=== PATIENT | female | born 1940 | race Caucasian/White ===

== ENCOUNTER 2018-10-07 16:47 | Inpatient (IN) ==
[2018-10-07 17:27] LABS: BILIRUBIN URINE NEGATIVE (NEGATIVE); BLOOD URINE 4+ (NEGATIVE); CLARITY VERY CLOUDY (CLEAR); COLOR YELLOW; GLUCOSE URINE NEGATIVE (NEGATIVE); KETONE URINE NEGATIVE (NEGATIVE); LEUKOCYTES URINE 2+ (NEGATIVE); NITRITE URINE NEGATIVE (NEGATIVE); PROTEIN URINE TRACE mg/dL (NEGATIVE); UR AMPHETAMINES QUAL NONE DETECTED (NONE DETECT); UR BARBITUATES QUAL NONE DETECTED (NONE DETECT); UR BENZODIAZEPIN QUAL NONE DETECTED (NONE DETECT); UR CANNABINOIDS QUAL NONE DETECTED (NONE DETECT); UR COCAINE QUAL NONE DETECTED (NONE DETECT); UR METHADONE QUAL NONE DETECTED (NONE DETECT); UR METHAMPHETAMINE QUAL NONE DETECTED (NONE DETECT); UR OPIATES QUAL NONE DETECTED (NONE DETECT); UR OXYCODONE QUAL NONE DETECTED (NONE DETECT); UR PCP QUAL NONE DETECTED (NONE DETECT); UR PROPOXYPHENE QUAL NONE DETECTED (NONE DETECT); UR TCA QUAL NONE DETECTED (NONE DETECT); UROBILINOGEN URINE NORMAL
[2018-10-07 17:28] LABS: URINE SOURCE CLEAN CATCH
[2018-10-07 17:32] LABS: URINE BACTERIA 2+ /HFP; URINE CAST NONE SEEN /LPF; URINE CRYSTAL NONE SEEN /HPF; URINE EPITHELIAL CELLS >10 /HPF (<10); URINE SMALL ROUND CELLS TRANSITIONAL PRESENT; URINE WBC TNTC /HPF (<10); URINE YEAST NONE SEEN /HPF
[2018-10-07] MEDS ORDERED: NORCO-5 PO ONE ×2 (19:46→23:20)
[2018-10-07 19:51] LABS: BASO# 0.02 X1000 (0.0-0.2); BASO% 0.2 % (0.0-0.8); EOS# 0.17 X1000 (0.0-0.7); EOS% 1.8 % (0.0-10.0); HEMATOCRIT 26.6 % (37.0-47.0); HEMOGLOBIN 8.9 g/dL (12.0-16.0); IMM GRAN# 0.03 X1000 (0.0-0.04); IMM GRAN% 0.3 % (0.0-0.5); LYMPH# 0.81 X1000 (1.2-3.4); LYMPH% 8.5 % (20.5-51.1); MCH 27.5 PG (27-31); MCHC 33.5 g/dL (33-37); MCV 82.1 FL (81-99); MONO# 1.08 X1000 (0.11-0.59); MONO% 11.4 % (1.7-9.3); MPV 9.3 FL (7.4-10.4); NEUT# 7.39 X1000 (1.4-6.5); NEUT% 77.8 % (42.2-75.2); PLT 394 X1000 (130-400); RBC 3.24 XMIL (4.2-5.4); RDW 16.9 % (11.5-14.5)
--- NOTE | 2018-10-07 20:02 | PROVIDER DOCUMENTATION ---
HPI-Psychological Disorder - General Chief Complaint: Psych-Low Risk Stated Complaint: PSYCH EVAL Time Seen by Provider: 10/07/18 17:15 Source: patient Allergies/Adverse Reactions: Patient Allergies Allergy/AdvReac Type Severity Reaction Status Date / Time Penicillins Allergy RASH Verified 10/07/18 18:22 Sulfa (Sulfonamide Allergy RASH Verified 10/07/18 18:22 Antibiotics) Home Medications: Home Medication List Medication Instructions Recorded Confirmed Last Taken Type Acetaminophen [Mapap] 500 mg PO PRN PRN 10/19/14 10/07/18 Unknown History Ascorbic Acid [Vitamin C] 500 mg PO DAILY 10/19/14 10/07/18 10/06/18 History Calcium Carbonate [Calcarb 600] 600 mg PO DAILY 10/19/14 10/07/18 10/06/18 History Docusate Sodium [Doc-Q-Lace] 100 mg PO BID 10/19/14 10/07/18 10/06/18 History Loperamide [Imodium] 2 mg PO PRN PRN 10/19/14 10/07/18 Unknown History Benztropine Mesylate 1 mg PO TID 10/07/18 10/07/18 10/06/18 History Cyanocobalamin (Vitamin B-12) 1,000 mg PO DAILY 10/07/18 10/07/18 10/06/18 History [Vitamin B-12] Diphenhydramine HCl [Banophen] 25 mg PO BID PRN PRN 10/07/18 10/07/18 Unknown History Linagliptin [Tradjenta] 5 mg PO DAILY 10/07/18 10/07/18 Unknown History Losartan/Hydrochlorothiazide 1 ea PO DAILY 10/07/18 10/07/18 10/06/18 History [Losartan-Hctz 100-25 mg Tab] Nebivolol HCl [Bystolic] 10 mg PO DAILY 10/07/18 10/07/18 Unknown History Omeprazole 20 mg PO DAILY 10/07/18 10/07/18 Unknown History Paliperidone Palmitate [Invega 156 mg IJ DIRECTED 10/07/18 10/07/18 09/23/18 History Sustenna] Trazodone [Desyrel] 150 mg PO HS PRN PRN 10/07/18 10/07/18 Unknown History - History of Present Illness-Psych Nature of Presenting Problem: pt reports rt. flank pain and dysuria x a few days , pt sent from assisted living for AMS with agitation x a few days. pt calm and cooperative during my assessment with tremor that is caused by current psych medication according to patients daughter. pt has had reported aggitation and pacing the floor which is altered from her normal behavior, No SI or HI at this time. Onset/Duration: reports: 3 days ago Timing: reports: still present Severity: reports: moderate Situational problems related to:: reports: N/A Psychiatric Complaints: reports: altered mental status, anxiety, irritability, tremor, other Substance Use: reports: none/never Previous psych related hospitalizations?: Yes Patient arrived by:: private car Similar Symptoms Previously?: Yes (hx schitzophrenia) Recently seen or treated by another doctor?: No - Suicidal Ideation How did the ingestion/other suicidal act come to attention?: no SI Clinician's estimation of suicide risk?: low risk Review of Systems - Adult - REVIEW OF SYSTEMS - ADULT Constitutional: reports: no symptoms reported Eyes: reports: no symptoms reported Ears, Nose, Mouth & Throat: reports: no symptoms reported Cardiovascular: reports: no symptoms reported Respiratory: reports: no symptoms reported Gastrointestinal: reports: no symptoms reported Genitourinary: reports: see HPI Musculoskeletal: reports: see HPI Integumentary: reports: no symptoms reported Neurological: reports: see HPI Psychiatric: reports: see HPI Endocrine: reports: no symptoms reported Hematologic/Lymphatic: reports: no symptoms reported Allergic/Immunologic: reports: no symptoms reported All Other Systems: Reviewed and Negative Past History - Adult - PAST MEDICAL HISTORY-ADULT Review of Records: reports: Old Records Reviewed, Nursing Assessment Review, Medications Reviewed Major Childhood Illnesses: reports: denies history Cardiovascular: reports: HTN Respiratory: reports: denies history Gastrointestinal: reports: denies history Psychiatric: reports: schizophrenia Endocrine/Immune: reports: Diabetes Other Conditions: reports: skin disorder (cancer) - PRIOR SURGERIES/PROCEDURES Surgical/Procedure History: reports: cholecystectomy, other (skin cancer removal, face and lip) - IMMUNIZATION STATUS Childhood Immunizations: See Nurse Assessment Flu Vaccine: See Nurse Assessment - FAMILY HISTORY Family History: other (unable to assess due to AMS) - SOCIAL HISTORY Smoking: denies Provider spent 3-5 mins advising pt. on dangers of tobacco.: Discussed manners to quit use, and f/u contacts for add'l counseling. Substance Use: none/never Alcohol Use Frequency: never Physical Exam-Psych Focus - Physical Exam-Psych Initial Vital Signs Reviewed: Yes Appearance: appropriate appearance, anxious, impaired insight, impaired recent memory, impaired remote memory, moderate distress Neurological: alert, normal mood/affect, flat, other (has periods of anxiety and calm demeanour). negative: oriented x 3 Behavior/Eye Contact/Speech: cooperative, other Thoughts/Hallucinations: no apparent hallucination, delusions HENMT: normocephalic/atraumatic, moist mucous membranes, normal ENT inspection Neck: non-tender, full range of motion, supple Respiratory: chest non-tender, lungs clear, normal breath sounds, no pleuratic chest pain, no respiratory distress, no accessory muscle use Cardiovascular: normal peripheral pulses, regular rate, rhythm, no edema, no gallop, no JVD, no murmur Abdominal Exam: normal bowel sounds, soft, distended, tenderness (tenderness to palpation in lower abdomen) Lymphatic: no adenopathy Back Exam: normal inspection, no vertebral tenderness, CVA tenderness Extremity: normal range of motion, non-tender Integumentary: normal color, normal turgor, warm/dry Progress - PLAN OF CARE/RESULTS Progress/Plan/Lab Results: Vital Signs - 8 hr 10/07/18 16:52 10/07/18 19:24 Temperature 98 F Pulse Rate 80 78 Respiratory Rate 18 18 Blood Pressure 139/66 119/107 O2 Sat by Pulse Oximetry 97 100 Laboratory Results - last 24 hr 10/07/18 10/07/18 10/07/18 17:00 17:00 17:00 WBC RBC Hgb Hct MCV MCH MCHC RDW Std Deviation Plt Count MPV Immature Gran % (Auto) Neut % (Auto) Lymph % (Auto) [place] % (Auto) Eos % (Auto) Baso % (Auto) Immature Gran # (Auto) Neut # (Auto) Lymph # (Auto) [place] # (Auto) Eos # (Auto) Baso # (Auto) Sodium Potassium Chloride Carbon Dioxide Anion Gap BUN Creatinine Estimated GFR/1.73 m2 BUN/Creatinine Ratio Glucose Calculated Osmolality Calcium Total Bilirubin AST ALT Alkaline Phosphatase Total Protein Albumin Globulin Albumin/Globulin Ratio Urine Source CLEAN CATCH Urine Color YELLOW Urine Clarity VERY CLOUDY A Urine pH 5.0 Ur Specific [place] 1.000 Urine Protein TRACE A Urine Ketones NEGATIVE Urine Blood 4+ Urine Nitrite NEGATIVE Urine Bilirubin NEGATIVE Urine Urobilinogen NORMAL Urine Microscopic RBC 10-20 A Urine WBC 2+ A Urine Microscopic WBC TNTC A Ur Epithelial Cells >10 A Urine Crystals NONE SEEN Small Round Cells TRANSITIONAL PRESENT Urine Bacteria 2+ Urine Casts NONE SEEN Urine Yeast NONE SEEN Urine Glucose NEGATIVE Urine Opiates Screen NONE DETECTED Ur Oxycodone Screen NONE DETECTED Urine Methadone Screen NONE DETECTED U Propoxyphene Qual NONE DETECTED Ur Barbituates Screen NONE DETECTED Ur Tricyclics Screen NONE DETECTED Ur Phencyclidine Scrn NONE DETECTED Ur Amphetamines Screen NONE DETECTED U Methamphetamines Scrn NONE DETECTED U Benzodiazepines Scrn NONE DETECTED Urine Cocaine Screen NONE DETECTED U Cannabinoids Screen NONE DETECTED Plasma/Serum Ethyl Alc 10/07/18 10/07/18 17:00 17:00 WBC 9.50 RBC 3.24 L Hgb 8.9 L Hct 26.6 L MCV 82.1 MCH 27.5 MCHC 33.5 RDW Std Deviation 16.9 H Plt Count 394 MPV 9.3 Immature Gran % (Auto) 0.3 Neut % (Auto) 77.8 H Lymph % (Auto) 8.5 L [place] % (Auto) 11.4 H Eos % (Auto) 1.8 Baso % (Auto) 0.2 Immature Gran # (Auto) 0.03 Neut # (Auto) 7.39 H Lymph # (Auto) 0.81 L [place] # (Auto) 1.08 H Eos # (Auto) 0.17 Baso # (Auto) 0.02 Sodium 127 L Potassium 4.4 Chloride 92 L Carbon Dioxide 25 Anion Gap 11 BUN 19 Creatinine 1.2 H Estimated GFR/1.73 m2 43 BUN/Creatinine Ratio 16 Glucose 126 H Calculated Osmolality 259 Calcium 8.4 L Total Bilirubin 0.40 AST 12 ALT 7 L Alkaline Phosphatase 90 Total Protein 6.9 Albumin 3.9 Globulin 3.0 Albumin/Globulin Ratio 1.0 Urine Source Urine Color Urine Clarity Urine pH Ur Specific [place] Urine Protein Urine Ketones Urine Blood Urine Nitrite Urine Bilirubin Urine Urobilinogen Urine Microscopic RBC Urine WBC Urine Microscopic WBC Ur Epithelial Cells Urine Crystals Small Round Cells Urine Bacteria Urine Casts Urine Yeast Urine Glucose Urine Opiates Screen Ur Oxycodone Screen Urine Methadone Screen U Propoxyphene Qual Ur Barbituates Screen Ur Tricyclics Screen Ur Phencyclidine Scrn Ur Amphetamines Screen U Methamphetamines Scrn U Benzodiazepines Scrn Urine Cocaine Screen U Cannabinoids Screen Plasma/Serum Ethyl Alc Orders Category Date Time Status CT RENAL STONE SEARCH [CT] Stat Exams 10/07/18 19:43 Completed ALCOHOL BLOOD Stat Lab 10/07/18 17:00 Completed BLOOD CULTURE [BLDCUL] Stat Lab 10/07/18 22:31 Ordered CBC WITH ELECTRONIC DIFF [HEME] Stat Lab 10/07/18 17:00 Completed CMP [COMPREHENSIVE METABOLIC PANEL] [CHEM] Stat Lab 10/07/18 17:00 Completed LACTATE, PLASMA [CHEM] Stat Lab 10/07/18 22:[address] W/POSS RFLX CULT [URINALYSIS] Stat Lab 10/07/18 17:00 Completed URINE CULTURE [RM] Routine Lab 10/07/18 17:32 Received URINE DRUG SCREEN [address] Stat Lab 10/07/18 17:00 Completed 0.9% Sodium Chloride Inj [Ns] 1,000 ml Med 10/07/18 22:16 Active IV 999 mls/hr Ciprofloxacin 400 mg/D5w [Cipro 400 mg/D5w] Med 10/07/18 22:19 Active 400 mg in 200 ml IV NOW Hydrocodone/APAP 5 mg/325 mg [Gause-5] Med 10/07/18 19:46 Discontinued 1 each PO NOW ONE discussed with patient family that patient would be admitted to hospital for anemia, hyponatremia and uti. pt family agreed with POC and verbalized understanding. Result Diagrams: 10/07/18 17:00 10/07/18 17:00 - REASSESSMENT Reassessment #1 Status: unchanged - CT/MRI 1 CT Study: Renal Stone, other Impression: Abnormal Comparison with other Films: no prior study CT Results: see report, possible ovarian malignancy can not be excluded - CONSULTS/PCP/HOSPITALIST Notification #1 *Consult/PCP/Hospitalist*: Dr Dominguez Time Discussed: 22:57 Reason/Comments: admit to [facility] Consult Disposition: Admit Departure - Departure Date of Disposition Decision: 10/07/18 Time of Disposition Decision: 22:56 DIAGNOSIS: UTI (urinary tract infection), Anemia, Hyponatremia Disposition: ADMITTED INPATIENT 09 Certified Medical Emergency: Urgent Condition: Stable Referrals and Follow-Ups: None,PCP [Primary Care Provider] - - Critical Care Note This patient required my direct & personal management of CC.: No Attestation - Physician/ RORO Attestation Patient care was provided by Advanced Practice Provider:: Yes Advanced Practice Provider:: Jovany Garland Advanced Practice Provider documentation review:: The Mid-level provider documentation, treatment plan and medical decision making was reviewed by the physician who agrees with all treatment and medical decision making by the MLP. The physician spent face to face time with patient:: No Advanced Practice Provider documentation review:: Supervising physician onsite and consulted in the evaluation and care of this patient. The physician did not have a face to face encounter with the patient.
[2018-10-07 20:11] LABS: ALBUMIN 3.9 g/dL (3.5-5.0); CALCIUM 8.4 mg/dL (8.8-10.2); CREATININE 1.2 mg/dL (0.5-0.9); POTASSIUM 4.4 mmol/L (3.5-5.1); TOTAL BILIRUBIN 0.4 mg/dL (0.20-1.00); TOTAL PROTEIN 6.9 g/dL (6.3-8.3)
--- NOTE | 2018-10-07 20:28 | Diag Imaging Result Doc PS360 ---
EXAM: CT RENAL STONE SEARCH - 10/07/2018 HISTORY: flank pain TECHNIQUE: CT renal stone search without contrast COMPARISON: None. FINDINGS: There is no hydronephrosis or perinephric edema identified. There is no renal stone identified. There is a hiatal hernia. The gallbladder surgically absent. There are small right and tiny left pleural effusions. There is a small amount ascites. There are some omental thickening which is most prominent at the midline and on the right. There is soft tissue fullness at the pelvis. The possibility of these findings relate to malignancy such as ovarian carcinoma cannot be excluded. There is no evidence of bowel obstruction. There is colonic diverticulosis. There is no indication of diverticulitis. There is no abscess identified. There is no free air. IMPRESSION: No evidence of renal stone or hydronephrosis. Small right and tiny left pleural effusions, small amount of ascites, omental thickening, and 0soft tissue fullness in the pelvis. The possibility of malignancy such as ovarian carcinoma cannot be excluded. Correlation with clinical evaluation is recommended. Hiatal hernia. Uncomplicated colonic diverticulosis. This exam was performed using automated exposure control, adjustment of mA or kV according to patient size, and/or use of iterative reconstruction technique. Electronically signed by Rajat Mensah 10/07/2018 8:26 PM
[2018-10-07] MEDS ORDERED: NS 1,000 ML IV ONE ×2 (22:16→22:59)
[2018-10-07] MEDS ORDERED: CIPRO 400 MG/D5W 400 MG/200 ML IVPB IV ONE (22:19)
[2018-10-08] MEDS ORDERED: BLISTEX MEDICATED BERRY LIP BALM TOP PRN (04:27)
[2018-10-08] MEDS: ZOFRAN IV PRN ×2 (05:25→11:30)
[2018-10-08] MEDS ORDERED: TYLENOL 10 MG/KG PO PRN (08:35)
[2018-10-08] MEDS ORDERED: IMODIUM PO PRN (08:35)
[2018-10-08] MEDS: CIPRO 400 MG/D5W 400 MG/200 ML IVPB IV SCH ×2 (09:04→21:56)
[2018-10-08] MEDS: BYSTOLIC PO SCH (09:04)
[2018-10-08] MEDS: CALTRATE 600 PO SCH (09:05)
[2018-10-08] MEDS: TRADJENTA PO SCH (09:05)
[2018-10-08] MEDS: VITAMIN C PO SCH (09:05)
[2018-10-08] MEDS: VITAMIN B-12 PO SCH (09:05)
[2018-10-08] MEDS: COGENTIN PO SCH ×3 (09:06→17:14)
[2018-10-08] MEDS: PRILOSEC PO SCH (11:26)
--- NOTE | 2018-10-08 16:55 | HISTORY AND PHYSICAL ---
CHIEF COMPLAINT: Altered mental status. HISTORY OF PRESENT ILLNESS: Patient is an elderly female who lives in assisted living. She was sent to the ER secondary to altered mental status and agitation over the past few days that has continued to worsen. She is normally calm and cooperative. However, over the past few days, she has become agitated and angry very easily. She was pacing the floor, which is not her normal activity. Currently, she is calm and pleasant. She does have a tremor that her daughter notes is secondary to her psych medications. ALLERGIES: Penicillin and sulfa causing a rash. MEDICATIONS: 1. Tylenol. 2. Vitamin C. 3. Calcium. 4. Imodium. 5. B12. 6. Losartan/hydrochlorothiazide. 7. Bystolic. 8. Omeprazole. 9. Invega. 10. Desyrel. REVIEW OF SYSTEMS: Per the daughter mainly, the patient denies any current fevers, chills, cough, congestion, or other upper respiratory type symptoms. Denies any recent GI or issues. PAST MEDICAL HISTORY: Schizophrenia, diabetes, cancer, hypertension. She has had a cholecystectomy and skin cancer removed from her face and lips. FAMILY HISTORY: Noncontributory. SOCIAL HISTORY: She lives in assisted living. Does not smoke, drink or use other illicit substances. PHYSICAL EXAMINATION: VITAL SIGNS: Reviewed. Temperature 98 degrees, pulse 80, respiratory 18, BP 139/66, saturation 97% on room air. GENERAL: Patient is awake, alert, currently in no distress. NECK: Supple. CARDIOVASCULAR: Regular rate. No murmurs chest clear nonlabored. ABDOMEN: Soft, nondistended. EXTREMITIES: Moves all extremities. NEUROLOGIC: She is awake and alert. She does have trouble with orientation, but the daughter notes that she is pretty close back to her baseline at this point. LABORATORY DATA: Sodium 127, glucose 126, creatinine 1.6, hemoglobin and hematocrit of 8 and 26. ASSESSMENT: 1. Urinary tract infection. 2. Anemia of chronic disease. 3. Hyponatremia. 4. Hyperglycemia. 5. Chronic kidney dysfunction stage I. 6. Schizophrenia. 7. Hypertension. 8. Hyponatremia. PLAN: We will continue patient in the hospital on IV fluids. We will hold her hydrochlorothiazide as well as her Desyrel tonight secondary to her hyponatremia. Will continue normal saline and will follow. cc: Oziel Dominguez MD
[2018-10-08] MEDS: BENADRYL PO PRN (20:07)
[2018-10-08] MEDS: TYLENOL PO PRN (20:07)
[2018-10-08] MEDS: COLACE PO SCH (20:07)
[2018-10-08] MEDS: HALDOL IV PRN (20:42)
[2018-10-08] MEDS: BENADRYL IV PRN (23:38)
[2018-10-09] MEDS: ATIVAN IV PRN (02:42)
[2018-10-09] MEDS: PRILOSEC PO SCH (06:05)
[2018-10-09 06:10] LABS: HEMATOCRIT 25.3 % (37.0-47.0); HEMOGLOBIN 8.4 g/dL (12.0-16.0); MCH 26.6 PG (27-31); MCHC 33.2 g/dL (33-37); MCV 80.1 FL (81-99); MPV 8.9 FL (7.4-10.4); RBC 3.16 XMIL (4.2-5.4); RDW 16.6 % (11.5-14.5); WBC 8.33 X1000 (4.8-10.8)
[2018-10-09 06:37] LABS: ALBUMIN 3.4 g/dL (3.5-5.0); CALCIUM 8.8 mg/dL (8.8-10.2); CREATININE 1.1 mg/dL (0.5-0.9); MAGNESIUM 1.2 mg/dL (1.5-2.7); POTASSIUM 4.2 mmol/L (3.5-5.1); TOTAL BILIRUBIN 0.5 mg/dL (0.20-1.00); TOTAL PROTEIN 6.6 g/dL (6.3-8.3)
[2018-10-09] MEDS: HALDOL IV PRN (07:21)
[2018-10-09] MEDS: BENADRYL PO PRN (07:21)
[2018-10-09] MEDS: CIPRO 400 MG/D5W 400 MG/200 ML IVPB IV SCH ×2 (09:34→21:53)
--- NOTE | 2018-10-09 10:30 | PROGRESS NOTE ---
DATE: 10/09/2018 SUBJECTIVE: Patient had a very eventful evening and night. She was agitated, combative at times, and became a harm to herself as well as others, and required chemical as well as physical restraints for a short period of time. Thankfully, this morning, she is much more calm. She is out of physical restraints. PHYSICAL EXAMINATION: Vital Signs: Temperature 97.4, pulse 86, respiratory rate 18, BP 136/45. General: Patient currently is calm. She is alert. She is disoriented. Does not answer questions nor follow commands. She is in no respiratory distress. HEENT: Normocephalic. Neck: Supple. Cardiovascular: Regular rate. No murmurs. Chest: Clear and nonlabored. Abdomen: Soft, nontender, nondistended. Extremities: Moves all extremities. Neurologic: No changes, although unable to assess due to her altered mental status. ASSESSMENT: 1. Urinary tract infection. 2. Anemia of chronic disease. 3. Hyponatremia, continues to be problematic at 124. 4. Hyperglycemia. 5. Chronic kidney disease. 6. Schizophrenia. 7. Hypertension. 8. Others. PLAN: We will continue patient in the hospital. Continue antibiotics, IV fluids, supportive care. We will continue the use of physical and chemical restraints only as necessary to protect her or the staff. cc: Oziel Dominguez MD
[2018-10-09] MEDS: BYSTOLIC PO SCH (10:50)
[2018-10-09] MEDS: VITAMIN B-12 PO SCH (10:50)
[2018-10-09] MEDS: COGENTIN PO SCH ×4 (10:50→16:31)
[2018-10-09] MEDS: VITAMIN C PO SCH (10:50)
[2018-10-09] MEDS: CALTRATE 600 PO SCH (10:50)
[2018-10-09] MEDS: TRADJENTA PO SCH (10:50)
[2018-10-09] MEDS: COLACE PO SCH (21:52)
[2018-10-09] MEDS: BENADRYL IV PRN (23:57)
[2018-10-09] MEDS: TYLENOL PO PRN (23:58)
[2018-10-10] MEDS: PRILOSEC PO SCH ×2 (06:01→09:18)
[2018-10-10 06:29] LABS: HEMATOCRIT 23.6 % (37.0-47.0); HEMOGLOBIN 7.8 g/dL (12.0-16.0); MCH 26.7 PG (27-31); MCHC 33.1 g/dL (33-37); MCV 80.8 FL (81-99); MPV 9.3 FL (7.4-10.4); RBC 2.92 XMIL (4.2-5.4); RDW 16.5 % (11.5-14.5); WBC 7.74 X1000 (4.8-10.8)
[2018-10-10 06:52] LABS: ALBUMIN 3.2 g/dL (3.5-5.0); CALCIUM 8.2 mg/dL (8.8-10.2); CREATININE 1.1 mg/dL (0.5-0.9); POTASSIUM 4.2 mmol/L (3.5-5.1); TOTAL BILIRUBIN 0.3 mg/dL (0.20-1.00); TOTAL PROTEIN 5.9 g/dL (6.3-8.3)
[2018-10-10] MEDS: CIPRO 400 MG/D5W 400 MG/200 ML IVPB IV SCH (09:17)
[2018-10-10] MEDS: VITAMIN C PO SCH (09:18)
[2018-10-10] MEDS: CALTRATE 600 PO SCH (09:18)
[2018-10-10] MEDS: COGENTIN PO SCH ×4 (09:18→16:50)
[2018-10-10] MEDS: BYSTOLIC PO SCH (09:18)
[2018-10-10] MEDS: TRADJENTA PO SCH (09:18)
[2018-10-10] MEDS: VITAMIN B-12 PO SCH (09:18)
[2018-10-10] MEDS ORDERED: NS 1,000 ML IV ONE (11:30)
[2018-10-10] MEDS ORDERED: MAGNESIUM SULFATE 2 GM/S.W.I. 2 GM/50 ML IVPB IV ONE (15:05)
[2018-10-10 17:59] LABS: CALCIUM 8.7 mg/dL (8.8-10.2); CREATININE 1.2 mg/dL (0.5-0.9); POTASSIUM 4.5 mmol/L (3.5-5.1)
[2018-10-10] MEDS: CIPRO PO SCH (22:54)
[2018-10-10] MEDS: COLACE PO SCH (22:55)
[2018-10-11] MEDS: TYLENOL PO PRN ×2 (03:10→18:36)
[2018-10-11] MEDS: PRILOSEC PO SCH (06:58)
[2018-10-11 07:35] LABS: BASO# 0.01 X1000 (0.0-0.2); BASO% 0.1 % (0.0-0.8); EOS# 0.15 X1000 (0.0-0.7); EOS% 2.1 % (0.0-10.0); HEMATOCRIT 24.8 % (37.0-47.0); HEMOGLOBIN 8.3 g/dL (12.0-16.0); IMM GRAN# 0.02 X1000 (0.0-0.04); IMM GRAN% 0.3 % (0.0-0.5); MCH 27.2 PG (27-31); MCHC 33.5 g/dL (33-37); MCV 81.3 FL (81-99); MONO# 0.87 X1000 (0.11-0.59); MONO% 12.4 % (1.7-9.3); MPV 8.4 FL (7.4-10.4); NEUT# 5.25 X1000 (1.4-6.5); NEUT% 75.1 % (42.2-75.2); PLT 368 X1000 (130-400); RBC 3.05 XMIL (4.2-5.4); RDW 16.5 % (11.5-14.5)
[2018-10-11 08:02] LABS: CALCIUM 8.6 mg/dL (8.8-10.2); CREATININE 1.2 mg/dL (0.5-0.9); POTASSIUM 4.4 mmol/L (3.5-5.1)
[2018-10-11] MEDS: TRADJENTA PO SCH (10:20)
[2018-10-11] MEDS: VITAMIN B-12 PO SCH (10:20)
[2018-10-11] MEDS: BYSTOLIC PO SCH (10:20)
[2018-10-11] MEDS: CALTRATE 600 PO SCH (10:20)
[2018-10-11] MEDS: COGENTIN PO SCH ×3 (10:21→22:23)
[2018-10-11] MEDS: CIPRO PO SCH ×2 (10:21→22:22)
[2018-10-11] MEDS: VITAMIN C PO SCH (10:21)
[2018-10-11] MEDS ORDERED: LACTULOSE PO PRN (10:56)
[2018-10-11] MEDS: MIRALAX PO SCH (14:05)
[2018-10-11] MEDS ORDERED: NS 1,000 ML IV ONE (16:10)
[2018-10-11] MEDS: COLACE PO SCH (22:22)
[2018-10-11] MEDS: ATIVAN IV PRN (22:22)
[2018-10-11 22:35] LABS: CALCIUM 8.7 mg/dL (8.8-10.2); CREATININE 1.1 mg/dL (0.5-0.9); POTASSIUM 4.7 mmol/L (3.5-5.1)
[2018-10-12 06:04] LABS: CREATININE 1.1 mg/dL (0.5-0.9); POTASSIUM 4.4 mmol/L (3.5-5.1)
[2018-10-12] MEDS: PRILOSEC PO SCH (06:37)
[2018-10-12 07:46] VITALS: BP 132/55
[2018-10-12] MEDS: BYSTOLIC PO SCH (10:33)
[2018-10-12] MEDS: CALTRATE 600 PO SCH (10:33)
[2018-10-12] MEDS: TRADJENTA PO SCH (10:33)
[2018-10-12] MEDS: VITAMIN B-12 PO SCH (10:33)
[2018-10-12] MEDS: VITAMIN C PO SCH (10:33)
[2018-10-12] MEDS: COGENTIN PO SCH ×2 (10:33→13:28)
[2018-10-12] MEDS: CIPRO PO SCH (10:34)
[2018-10-12] MEDS: MIRALAX PO SCH (10:48)
[2018-10-12] MEDS ORDERED: LACTULOSE PO SCH (11:15)
--- NOTE | 2018-10-12 11:55 | PROGRESS NOTE ---
DATE: 10/10/2018 SUBJECTIVE: Patient seems okay. Her brother at the bedside reports that she has had some confusion at night, but overall is improved. OBJECTIVE: Vital Signs: Blood pressure 137/54, heart rate 69, respiratory 16, temperature 97.6 degrees, satting 97% on room air. Cardiovascular: Regular rate and rhythm. Pulmonary: Breath sounds clear to auscultation. GI: Soft, nontender, nondistended. Bowel sounds are positive. LABORATORY DATA: White count 7, hemoglobin and hematocrit 7 and 23, platelets 360. Sodium 124. Mag is 1.1. PROBLEM LIST: 1. Putative urinary tract infection. Her micro is negative. She is on Cipro which I think we may be able to convert to oral, and just treat for a total of 3 to 5 days because I think at this point it is not clear that she has that, but she does report symptoms of dysuria, discomfort on disposition. 2. Hyponatremia, likely related to hydrochlorothiazide. Reset osmostat. We are going to give her normal saline and follow her sodium. Check urine electrolytes. 3. Type 2 diabetes is stable. Continue blood sugar treatments and follow. 4. Anemia. Stable in hemoglobin and hematocrit. Continue to monitor closely. DISPOSITION: Pending her clinical status. Hopefully home soon. There was some discussion about psychiatric referral if her electrolytes are stable, and we do not have clear evidence, and I think that is reasonable, but we will work on trying to fix what we can currently. cc: Dc Terrazas MD
--- NOTE | 2018-10-13 16:23 | PROGRESS NOTE ---
DATE: 10/11/2018 SUBJECTIVE: Patient has no major complaints. She has not had any further confusion issues, anything from that standpoint. Her workup: She seems to be doing okay. No more combativeness. OBJECTIVE: Vital Signs: Blood pressure 137/55 and 59/76, respiratory rate 21, temperature 98.8 degrees, 98% on room air. Cardiovascular: Regular rate and rhythm. Pulmonary: Bilateral breath sounds. Clear to auscultation. GI: Was soft, nontender, nondistended. Bowel sounds are positive. LABORATORY DATA: Her sodium is up to 128. White count 7, hemoglobin and hematocrit 8 and 24, platelets 368. Cardiovascular: Regular rate and rhythm. Pulmonary: Bilateral breath sounds, clear to auscultation. GI: Soft, nontender, nondistended. Bowel sounds are positive. Extremity exam: No clubbing or cyanosis. Lymphatic exam: No peripheral edema. Neurological exam was nonfocal. LABORATORY DATA: As described. Sodium was up to 128. Her urine culture is still negative. However, she does have symptoms of dysuria. PROBLEM LIST: 1. Putative urinary tract infection. I think we will finish her course of Cipro. She was started on it I believe on the . So, today will be the last day, so I think we will probably stop it tomorrow. 2. Hyponatremia. Based on her lab she is actually sodium depleted somewhat. It is not consistent with SIADH despite all her medications, but she is responding to fluid restriction, so we will continue with that. 3. Diabetes appears to be well controlled. 4. Dementia with combativeness, delirium that also seems to be improved. At this point, I do not think she needs [facility] evaluation because she seems to be improved. DISPOSITION: I anticipate discharge tomorrow for sodium. Continues to improve. Back to assisted living. cc: Dc Terrazas MD
--- NOTE | 2018-10-14 14:26 | DISCHARGE SUMMARY ---
ADMISSION DATE: 10/08/2018 DISCHARGE DATE: 10/12/2018 ADMISSION DIAGNOSES: 1. Urinary tract infection. 2. Anemia of chronic disease. 3. Hyponatremia. 4. Hyperglycemia. 5. Chronic kidney disease stage 1. 6. Schizophrenia. 7. Hypertension. DISCHARGE DIAGNOSES: 1. Putative urinary tract infection micro negative but symptomatic with positive urinalysis. 2. Hyponatremia secondary to hydrochlorothiazide 3. Diabetes mellitus type 2 stable. 4. Anemia stable. CONSULTATIONS: None. SURGERIES AND PROCEDURES: None. HOSPITAL COURSE: Ms. Laurel Hernandez is a 78-year-old female who apparently lives in assisted living came into the ER with complaints of altered mental status, and agitation over the past few days prior to admission. Apparently, they were worsening. Normally, she is calm and cooperative. She did present with a tremor but apparently the daughter states that was normal and secondary to her psychiatric medications. She was found to have urinalysis that appeared to be with a urinary tract infection. She did have complaints of urinary tract infection type symptoms. She had a low sodium level of 124, and prior to discharge is up to 132. The hydrochlorothiazide was stopped as well as her Desyrel that was due to her hyponatremia. She was continued on IV fluid hydration. She appeared to have a little bit of acute kidney injury on top of CKD stage 1 which essentially resolved prior to discharge. Blood glucose levels remain stable. She remained stable and was discharged back to [facility] [place]. DISCHARGE VITAL SIGNS: Temperature 97.5 degrees, heart rate 70, respiratory rate 18, blood pressure 132/55, and O2 saturation 99% on room air. DISCHARGE LABORATORY DATA: White blood cells on 10/11/2018 7000, hemoglobin 8, hematocrit 24 and platelet count 368,000. Today, sodium 132, potassium 4.4, BUN 12, hematocrit 34.1, glucose 150, and calcium 9.0. PERTINENT IMAGING: Renal CT with no evidence of renal stone or hydronephrosis. She did have small right tiny pleural effusions. Small amount of ascites, omental thickening soft tissue fullness in the pelvis with possibility of malignancy such as ovarian carcinoma could not be excluded, and correlation with clinical evaluation recommended hiatal hernia, and uncomplicated colonic diverticulosis. DISCHARGE MEDICATIONS: 1. Colace 100 mg p.o. nightly. 2. Banophen 25 mg p.o. twice daily p.r.n. 3. Benztropine mesylate 1 mg p.o. t.i.d. 4. Bystolic 10 mg p.o. daily. 5. Calcium carbonate 600 mg p.o. daily. 6. Desyrel trazodone 150 mg p.o. nightly p.r.n. 7. Imodium 2 mg p.o. p.r.n. 8. Invega 156 mg injection as directed. 9. Tylenol 500 mg p.o. every 6 hours p.r.n. 10. Omeprazole 20 mg p.o. daily. 11. Tradjenta 5 mg p.o. daily. 12. Vitamin B12 1000 mg p.o. daily. 13. Vitamin C ascorbic acid 500 mg p.o. daily. 14. Cipro 500 mg p.o. twice daily. 15. Losartan 100 mg p.o. daily. DISCHARGE DIET: Diabetic diet. DISCHARGE ACTIVITY: As tolerated. DISCHARGE PHYSICIAN FOLLOWUP: None unless she follows up with her primary care provider. DISCHARGE INSTRUCTIONS: If her condition changes, contact physician and/or return to the emergency department. Changes may include but are not limited to, shortness of breath, increased fatigue, excessive bleeding, explained weight loss or gain, unmanageable pain, signs or symptoms of infection. DISCHARGE DISPOSITION: [facility]. Dictated by KHUSHI Pierre for Dc Terrazas MD cc: KHUSHI Pierre MD [facility]
[2018-10-23] MEDS ORDERED: INVEGA SUSTENNA IM SCH (09:00)
== END 2018-10-12 13:40 | DRG 690 ==
LOC: P.ED 16:47 → P.MEDSURG 16:47 → SUATTDRO 10-08 08:28
PROVIDERS: ATTEND Internal Medicine
CPT/HCPCS: 74176; 80048; 80053; 80104; 80301; 80305; 80307; 80320; 81001; 82055; 82948; 83605; 83735; 83935; 84300; 85025; 85027; 87040; 87088; 94761; 99285; A9270; G0431; G0434; G0477; G0480; G6040; J0744; J1200; J1630; J2060; J2405; J3475; J7030; XXXXX

== ENCOUNTER 2019-01-09 16:16 | Inpatient (IN) ==
[2019-01-09 17:52] LABS: CLARITY CLEAR (CLEAR); COLOR YELLOW
[2019-01-09 17:53] LABS: BILIRUBIN URINE NEGATIVE (NEGATIVE); BLOOD URINE NEGATIVE (NEGATIVE); GLUCOSE URINE NEGATIVE (NEGATIVE); KETONE URINE NEGATIVE (NEGATIVE); LEUKOCYTES URINE NEGATIVE (NEGATIVE); NITRITE URINE NEGATIVE (NEGATIVE); PROTEIN URINE NEGATIVE (NEGATIVE); UROBILINOGEN URINE NORMAL
[2019-01-09 17:59] LABS: UR AMPHETAMINES QUAL NONE DETECTED (NONE DETECT); UR BARBITUATES QUAL NONE DETECTED (NONE DETECT); UR BENZODIAZEPIN QUAL NONE DETECTED (NONE DETECT); UR CANNABINOIDS QUAL NONE DETECTED (NONE DETECT); UR COCAINE QUAL NONE DETECTED (NONE DETECT); UR METHADONE QUAL NONE DETECTED (NONE DETECT); UR METHAMPHETAMINE QUAL NONE DETECTED (NONE DETECT); UR OPIATES QUAL NONE DETECTED (NONE DETECT); UR OXYCODONE QUAL NONE DETECTED (NONE DETECT); UR PCP QUAL NONE DETECTED (NONE DETECT); UR PROPOXYPHENE QUAL NONE DETECTED (NONE DETECT); UR TCA QUAL NONE DETECTED (NONE DETECT)
[2019-01-09 18:15] LABS: URINE SOURCE CATH
[2019-01-09 18:16] LABS: URINE BACTERIA NEGATIVE /HFP; URINE CAST GRANULAR PRESENT /LPF; URINE CRYSTAL NONE SEEN /HPF; URINE EPITHELIAL CELLS <10 /HPF (<10); URINE RBC <10 /HPF (<10); URINE SMALL ROUND CELLS TRANSITIONAL PRESENT; URINE WBC <10 /HPF (<10); URINE YEAST NONE SEEN /HPF
--- NOTE | 2019-01-09 18:20 | Diag Imaging Result Doc PS360 ---
EXAM: CT HEAD W/O CONTRAST - 01/09/2019 HISTORY: psych TECHNIQUE: CT head without contrast COMPARISON: None. FINDINGS: There are mild atrophic changes. There is no evidence of intracranial hemorrhage, mass effect, midline shift, or hydrocephalus. There is no evidence of infarct, although acute infarcts may not be immediately visible. There are atherosclerotic calcifications noted at the base the brain. There is no evidence of skull fracture. Visualized portions of paranasal sinuses and mastoid air cells appear clear. IMPRESSION: No visible acute intracranial abnormality. No hemorrhage or mass effect. This exam was performed using automated exposure control, adjustment of mA or kV according to patient size, and/or use of iterative reconstruction technique. Electronically signed by Rajat Mensah 01/09/2019 6:17 PM
--- NOTE | 2019-01-09 19:07 | PROVIDER DOCUMENTATION ---
This chart was entered by Juan Ramon Aguilar Scribe, acting as scribe for Alexandre Cervantes MD. HPI-General Adult - General Chief Complaint: UTI Symptoms Stated Complaint: PSYCH EVAL Time Seen by Provider: 01/09/19 17:19 Source: patient, family Allergies/Adverse Reactions: Patient Allergies Allergy/AdvReac Type Severity Reaction Status Date / Time Penicillins Allergy RASH Verified 01/09/19 17:41 Sulfa (Sulfonamide Allergy RASH Verified 01/09/19 17:41 Antibiotics) Home Medications: Home Medication List Medication Instructions Recorded Confirmed Last Taken Type Acetaminophen [Mapap] 500 mg PO Q6H PRN PRN 10/19/14 01/09/19 Unknown History Loperamide [Imodium] 2 mg PO PRN PRN 10/19/14 01/09/19 Unknown History Benztropine Mesylate 1 mg PO TID 10/07/18 01/09/19 01/09/19 History Cyanocobalamin (Vitamin B-12) 1,000 mg PO DAILY 10/07/18 01/09/19 01/09/19 History [Vitamin B-12] Linagliptin [Tradjenta] 5 mg PO DAILY 10/07/18 01/09/19 Unknown History Nebivolol HCl [Bystolic] 10 mg PO DAILY 10/07/18 01/09/19 01/09/19 History Omeprazole 20 mg PO DAILY 10/07/18 01/09/19 01/09/19 History Paliperidone Palmitate [Invega 156 mg IJ DIRECTED 10/07/18 01/09/19 12/19/18 History Sustenna] Trazodone [Desyrel] 150 mg PO HS PRN PRN 10/07/18 01/09/19 01/09/19 History Docusate Sodium [Colace] 100 mg PO QHS PRN 10/08/18 01/09/19 Unknown History Losartan [Cozaar] 100 mg PO DAILY #30 tab 10/11/18 01/09/19 01/09/19 Rx Calcium Carbonate [Calci-Chew] 1 tab PO 4XDAY 01/09/19 01/09/19 01/09/19 12:00 History Diphenhydramine HCl [Banophen] 25 mg PO Q6H PRN PRN 01/09/19 01/09/19 Unknown History Potassium Chloride 10 meq PO DAILY 01/09/19 01/09/19 01/09/19 History Torsemide 10 mg PO DAILY 01/09/19 01/09/19 01/09/19 History - History of Present Illness -Gen Adult Nature of Presenting Problems: Pt is a 78 yof who presents to the ED with a CC of potential UTI symptoms. Pt's niece states the pt has a hx of frequent UTIs and schizophrenia. Pt's niece reports the pt lives in a detention and states she was told by the detention staff that the pt is having visual hallucinations and states she is seeing bugs. Pt complains of having diarrhea. Pt denies having a cough, fever, or chills. Review of Systems - Adult - REVIEW OF SYSTEMS - ADULT Constitutional: reports: see HPI Eyes: reports: no symptoms reported Ears, Nose, Mouth & Throat: reports: no symptoms reported Cardiovascular: reports: no symptoms reported Respiratory: reports: no symptoms reported Gastrointestinal: reports: no symptoms reported Genitourinary: reports: see HPI, frequent UTI's Musculoskeletal: reports: no symptoms reported Integumentary: reports: no symptoms reported Neurological: reports: no symptoms reported Psychiatric: reports: see HPI, other (Visual hallucinations) Endocrine: reports: no symptoms reported Hematologic/Lymphatic: reports: no symptoms reported Allergic/Immunologic: reports: no symptoms reported All Other Systems: Reviewed and Negative Past History - Adult - PAST MEDICAL HISTORY-ADULT Review of Records: reports: Old Records Reviewed, Nursing Assessment Review, Medications Reviewed, Social history reviewed & non-contributory. Major Childhood Illnesses: reports: denies history Cardiovascular: reports: HTN Respiratory: reports: denies history Gastrointestinal: reports: denies history Obstetrical/Gynecological: reports: denies history Genitourinary: reports: denies history Musculoskeletal: reports: denies history Neurological: reports: dementia Psychiatric: reports: schizophrenia Endocrine/Immune: reports: Diabetes Other Conditions: reports: skin disorder (cancer) - PRIOR SURGERIES/PROCEDURES Surgical/Procedure History: reports: cholecystectomy, other (skin cancer removal, face and lip) - IMMUNIZATION STATUS Childhood Immunizations: See Nurse Assessment Flu Vaccine: See Nurse Assessment - FAMILY HISTORY Family History: other (unable to assess due to AMS) - SOCIAL HISTORY Smoking: denies, non-smoker Substance Use: none/never, denies Alcohol Use Frequency: never Physical Exam-General - PHYSICAL EXAM-ADULT Initial Vital Signs Reviewed: Yes - CONSTITUTIONAL General Appearance: alert, mild distress - EYES Eyes: PERRL/EOMI - HEAD, EARS, NOSE, MOUTH & THROAT HENMT: moist mucous membranes - NECK Neck: non-tender, full range of motion - RESPIRATORY Respiratory: chest non-tender, lungs clear, normal breath sounds, no pleuratic chest pain, no respiratory distress, no accessory muscle use - CARDIOVASCULAR Cardiovascular: normal peripheral pulses, regular rate, rhythm, no edema, no gallop, no JVD - GASTROINTESTINAL (ABDOMEN) Abdominal Exam: non tender, soft - MUSCULOSKELETAL Extremity: normal range of motion, non-tender - SKIN Integumentary: normal color, warm/dry - NEUROLOGIC Neurologic: grossly normal, no motor/sensory deficits - PSYCHIATRIC Psych/Mental Status: normal mood/affect, normal thought content, normal thought process, oriented x 3 Progress - PLAN OF CARE/RESULTS Progress/Plan/Lab Results: Vital Signs - 8 hr 01/09/19 16:32 Temperature 98.0 F Pulse Rate 85 Respiratory Rate 17 Blood Pressure 117/61 O2 Sat by Pulse Oximetry 97 Orders Category Date Time Status CT HEAD W/O CONTRAST [CT] Stat Exams 01/09/19 16:19 Ordered ALCOHOL BLOOD Stat Lab 01/09/19 17:[address] W/POSS RFLX CULT [URINALYSIS] Stat Lab 01/09/19 17:29 Or[address]INE DRUG SCREEN [address] Stat Lab 01/09/19 17:29 Ordered Result Diagrams: 01/10/19 15:50 01/10/19 15:50 - CHANGE OF SHIFT REPORT (ED Provider) 1 Report Given and Care Transferred to:: DR CARRANZA Time of Transfer: 19:00 Items Pending: Labs, XRAY Results, Physician Consult/Arrival ([facility] requesting [facility] eval for Visual hallucinations) Departure - Departure Date of Disposition Decision: 01/10/19 Time of Disposition Decision: 03:00 DIAGNOSIS: UTI (urinary tract infection), Hyponatremia, Visual hallucinations Disposition: ADMITTED INPATIENT 09 Certified Medical Emergency: Emergent Condition: Stable - Critical Care Note This patient required my direct & personal management of CC.: No Attestation - Physician/ RORO Attestation Patient care was provided by Advanced Practice Provider:: No The physician spent face to face time with patient:: Yes Advanced Practice Provider documentation review:: Supervising physician onsite and consulted in the evaluation and care of this patient. The physician did have a face to face encounter with the patient. This chart was documented by the indicated scribe, (Juan Ramon Aguilar, Alondra) and accurately reflects the services I performed and decisions made by me, Alexandre Cervantes MD, as attested by the provider's signature.
[2019-01-09 19:24] LABS: BASO# 0.01 X1000 (0.0-0.2); BASO% 0.1 % (0.0-0.8); EOS# 0.09 X1000 (0.0-0.7); EOS% 1.2 % (0.0-10.0); HEMATOCRIT 23.5 % (37.0-47.0); HEMOGLOBIN 7.3 g/dL (12.0-16.0); IMM GRAN# 0.03 X1000 (0.0-0.04); IMM GRAN% 0.4 % (0.0-0.5); LYMPH# 0.41 X1000 (1.2-3.4); LYMPH% 5.5 % (20.5-51.1); MCH 24.1 PG (27-31); MCHC 31.1 g/dL (33-37); MCV 77.6 FL (81-99); MPV 8.6 FL (7.4-10.4); NEUT# 6.05 X1000 (1.4-6.5); NEUT% 80.8 % (42.2-75.2); PLT 496 X1000 (130-400); RBC 3.03 XMIL (4.2-5.4); RDW 19.6 % (11.5-14.5); WBC 7.49 X1000 (4.8-10.8)
[2019-01-09 19:34] LABS: POTASSIUM 4.9 mmol/L (3.5-5.1)
[2019-01-09 19:35] LABS: ALBUMIN 3.1 g/dL (3.5-5.0); CALCIUM 7.8 mg/dL (8.8-10.2); CREATININE 1.5 mg/dL (0.5-0.9); TOTAL BILIRUBIN 0.4 mg/dL (0.20-1.00); TOTAL PROTEIN 5.8 g/dL (6.3-8.3)
[2019-01-09 19:54] LABS: FREE T4 1.57 ng/dL (0.93-1.70); TSH 3.22 uIUmL (0.27-4.20)
--- NOTE | 2019-01-09 20:03 | Diag Imaging Result Doc PS360 ---
EXAM: KUB ABDOMEN - 01/09/2019 HISTORY: constipation c flank pain x 4 days TECHNIQUE: AP spine abdomen COMPARISON: None. FINDINGS: There is mild gaseous distention of the stomach. There is some gaseous small bowel distention which is most prominent at the left lower quadrant. There is no indication of excessive retained fecal debris in the colon. There are surgical clips at the right upper quadrant. IMPRESSION: Mild gaseous distention of stomach. Gaseous small bowel distention which is most prominent at the left lower quadrant. No obvious constipation. Electronically signed by Rajat Mensah 01/09/2019 8:01 PM
[2019-01-09 23:32] LABS: OCCULT BLOOD 1 NEGATIVE (NEGATIVE)
--- NOTE | 2019-01-10 00:53 | ED EKG INTERP ---
This chart was entered by Janis Hatfield Scribe, acting as scribe for Rajiv Thomas MD. EKG Interpretation - EKG Time of EKG reading by physician:: 22:00 EKG Read and Signed by:: Rajiv Thomas EKG Interpretation (*Must complete 3 of following elements*): Abnormal Rate: 80 (possible lateral infarct, age undetermined ) Rhythm: SR w/PVC or fusion complexes QRS: RBB (incomplete), other (prolonged qt) CA Interval: normal ST Wave: non-specific ST changes (st and t wave abnormality, consider anterior ischemia) Comments: poor data quality, interpretation may be adversely affected Attestation - Physician/ RORO Attestation Patient care was provided by Advanced Practice Provider:: No The physician spent face to face time with patient:: Yes Advanced Practice Provider documentation review:: Supervising physician onsite and consulted in the evaluation and care of this patient. The physician did have a face to face encounter with the patient. This chart was documented by the indicated scribe, (Janis Hatfield Scribe) and accurately reflects the services I performed and decisions made by me, Rajiv Thomas MD, as attested by the provider's signature.
[2019-01-10 02:01] LABS: RETIC% 1.59 % (0.8-2.1); RETIC-HE 26.5 PG (28.2-36.6)
[2019-01-10 02:25] LABS: IRON SATURATION 10 %; TIBC 192 ug/dL; TOTAL IRON 19 ug/dL (49-151); UNBOUND IRON 173 ug/dL (112-346)
[2019-01-10] MEDS ORDERED: NS 500 ML ONE (04:54)
[2019-01-10] MEDS ORDERED: BENADRYL PO PRN (13:12)
[2019-01-10] MEDS ORDERED: DESYREL PO PRN (13:12)
[2019-01-10] MEDS ORDERED: TYLENOL PO PRN (13:12)
--- NOTE | 2019-01-10 14:09 | HISTORY AND PHYSICAL ---
CHIEF COMPLAINT: Visual hallucinations. HISTORY OF PRESENT ILLNESS: This is a 78-year-old female with a history of schizophrenia, who comes from an assisted living facility. She was sent to the emergency room by the facility, stating that they felt that the patient may have a urinary tract infection as she has been seeing bugs and having visual hallucinations. She has had some intermittent diarrhea. They did state that she has done this in the past when she had a urinary tract infection. Currently, she is calm and pleasant. She is lying in the bed. She just woke from a nap. ALLERGIES: Penicillin and sulfa. REVIEW OF SYSTEMS: Unable to obtain from the patient. Pertinent positives from the long term as stated above. PAST MEDICAL HISTORY: Schizophrenia, diabetes mellitus, hypertension. PAST SURGICAL HISTORY: Cholecystectomy, skin cancer removal from her face. SOCIAL HISTORY: She is in a long term. HOME MEDICATIONS: A list will be obtained by the nursing staff, and once verified, will be restarted as appropriate. PHYSICAL EXAMINATION: GENERAL: This is a 78-year-old female who is sitting up in the bed in no distress. VITAL SIGNS: Blood pressure is 129/40, with a heart rate of 81, respirations 18, temperature is 98.2 degrees, room air saturation is 98%. HEENT: Head is normocephalic, atraumatic. Mucous membranes are moist. NECK: Supple with trachea midline. CARDIOVASCULAR: Regular rate and rhythm. S1 and S2 are appreciated. She does have some bilateral lower extremity edema. Peripheral pulses are palpable x4 extremities. PULMONARY: Breath sounds are clear with no increased work of breathing noted. GASTROINTESTINAL: Abdomen is soft, nontender with bowel sounds in all 4 quadrants. NEUROLOGIC: She is alert and oriented. SKIN: Warm and dry. LABORATORY DATA: WBC is 7.4, with hemoglobin 7.3, hematocrit 23.5, platelets of 496,000. Sodium 129, potassium 4.9, BUN 20, creatinine 1.5, with a glucose of 136. Urinalysis is essentially negative. Stool for occult blood is negative. Urine drug screen reveals none detected, with the blood alcohol revealing none detected. Urine culture is pending. IMAGIN. CT of the head revealed no visible acute intracranial abnormality. No hemorrhage or mass effect. 2. Abdominal x-ray reveals mild gaseous distention of the stomach. No obvious constipation. ASSESSMENT: 1. Hyponatremia. 2. History of schizophrenia in a patient with recent visual hallucinations. 3. Presumed urinary tract infection. 4. Anemia of chronic disease. 5. Diabetes mellitus. 6. Hypertension. 7. Acute kidney injury overlying chronic kidney disease with a baseline creatinine of 1.2. PLAN: The patient has been admitted to the medical-surgical floor and placed on telemetry, which will continue. She was given a unit of packed cells. Will recheck a CBC and a CMP at 4 p.m. Will get a urine culture. We will contact Wound Care as well as Manager Licensing. Identify her home medications, and continue. Will check pattern blood glucose with sliding scale insulin. Will review her medications, and hold any medications that could exacerbate her hyponatremia. At present, her blood pressures are running in the 120s/40s. Will monitor for hypertension, and continue home medications as appropriate. Further treatments pending hospital course. Dictated by KHUSHI Gomez for Oziel Dominguez MD cc: KHUSHI Gomez MD
[2019-01-10] MEDS: HUMALOG (PARKWAY) SUBQ SCH ×2 (16:00→20:30)
[2019-01-10 16:15] LABS: ALBUMIN 2.8 g/dL (3.5-5.0); CALCIUM 7.9 mg/dL (8.8-10.2); CREATININE 1.2 mg/dL (0.5-0.9); POTASSIUM 4.5 mmol/L (3.5-5.1); TOTAL BILIRUBIN 0.6 mg/dL (0.20-1.00); TOTAL PROTEIN 5.9 g/dL (6.3-8.3)
[2019-01-10 16:18] LABS: HEMATOCRIT 28.6 % (37.0-47.0); HEMOGLOBIN 8.9 g/dL (12.0-16.0); MCH 24.7 PG (27-31); MCHC 31.1 g/dL (33-37); MCV 79.2 FL (81-99); MPV 8.3 FL (7.4-10.4); RBC 3.61 XMIL (4.2-5.4); RDW 19.5 % (11.5-14.5); WBC 7.38 X1000 (4.8-10.8)
--- NOTE | 2019-01-10 21:46 | HISTORY AND PHYSICAL ---
ADDENDUM: Patient seen and examined by myself. Full note dictated and discussed with nurse practitioner. Patient presented to the hospital via her family noting that she has had visual hallucinations. In the ER she was noted to have mild anemia. She was transfused 1 unit. Currently everything appears stable, going to watch her today. If all her labs remain stable will consult [facility]. cc: Oziel Dominguez MD
[2019-01-11] MEDS: HUMALOG (PARKWAY) SUBQ SCH ×4 (06:29→20:46)
[2019-01-11 07:57] LABS: ALBUMIN 2.8 g/dL (3.5-5.0); CALCIUM 7.5 mg/dL (8.8-10.2); POTASSIUM 4.3 mmol/L (3.5-5.1); TOTAL BILIRUBIN 0.7 mg/dL (0.20-1.00); TOTAL PROTEIN 6.2 g/dL (6.3-8.3)
[2019-01-11 08:03] LABS: HEMATOCRIT 29.3 % (37.0-47.0); MCH 24.5 PG (27-31); MCHC 30.7 g/dL (33-37); MCV 79.8 FL (81-99); RBC 3.67 XMIL (4.2-5.4); RDW 19.7 % (11.5-14.5); WBC 7.62 X1000 (4.8-10.8)
--- NOTE | 2019-01-11 08:20 | EKG Report ---
Test Performed on : 01/09/2019 10:00:55 PM Test Reason : ER Blood Pressure : / mmHG Vent. Rate : 080 BPM Atrial Rate : 080 BPM P-R Int : 146 ms QRS Dur : 114 ms QT Int : 560 ms P-R-T Axes : 054 044 043 degrees QTc Int : 645 ms Poor data quality, interpretation may be adversely affected Sinus rhythm. with premature ventricular complexes. or fusion complexes Incomplete right bundle branch block Possible Lateral infarct , age undetermined ST & T wave abnormality, consider anterior ischemia Prolonged QT Abnormal ECG When compared with ECG of 17-SEP-2016 21:14, Significant changes have occurred Unconfirmed Result
[2019-01-11] MEDS: COZAAR PO SCH (10:17)
[2019-01-11] MEDS: KLOR-CON PO SCH (10:17)
[2019-01-11] MEDS: VITAMIN B-12 PO SCH (10:17)
[2019-01-11] MEDS: DEMADEX PO SCH (10:18)
[2019-01-11] MEDS: BYSTOLIC PO SCH (10:18)
[2019-01-11] MEDS: PRILOSEC PO SCH (10:18)
--- NOTE | 2019-01-11 22:02 | PROGRESS NOTE ---
DATE: 01/11/2019 SUBJECTIVE: The patient has no complaints. PHYSICAL EXAMINATION: Vital Signs: Reviewed. Temperature 98 degrees, pulse 98, respiratory rate 20, BP 128/49. General: Patient is awake. She is in no distress. She is much more alert, oriented. She has been getting out of bed without requiring assistance, although still seems quite weak. HEENT: Normocephalic. Neck: Supple. Cardiovascular: Regular rate. Chest: Clear. Abdomen: Soft. Extremities: Moves all extremities. ASSESSMENT: 1. Hyponatremia, appears stable. In fact, at 133 appears higher than she has been in quite some time. 2. Schizophrenia, with recent visual hallucinations. We are going to consult [facility], as the patient is medically cleared for discharge. 3. Diabetes. 4. Hypertension. PLAN: Continue patient in the hospital. Continue to follow until she can be transitioned to [facility]. cc: Oziel Dominguez MD
[2019-01-12] MEDS: PRILOSEC PO SCH (06:22)
[2019-01-12] MEDS: HUMALOG (PARKWAY) SUBQ SCH ×2 (06:31→12:26)
[2019-01-12] MEDS: COZAAR PO SCH (09:17)
[2019-01-12] MEDS: BYSTOLIC PO SCH (09:18)
[2019-01-12] MEDS: DEMADEX PO SCH (09:18)
[2019-01-12] MEDS: KLOR-CON PO SCH (09:18)
[2019-01-12] MEDS: VITAMIN B-12 PO SCH (09:20)
--- NOTE | 2019-01-12 14:51 | Diag Imaging Result Doc PS360 ---
EXAM: CHEST-PORTABLE - 01/12/2019 HISTORY: Rehab Placement TECHNIQUE: Portable chest COMPARISON: 09/17/2016 FINDINGS: Heart size appears within normal limits. There is an air-containing retrocardiac density consistent with hiatal hernia similar to prior. Inspiration is mildly shallow. There are calcified lymph nodes at the right hilum from old granulomatous disease similar to prior. The lungs are clear. There is no pleural effusion or pneumothorax identified. IMPRESSION: Hiatal hernia. Mildly shallow inspiration. No other evidence of acute disease. Electronically signed by Rajat Mensah 01/12/2019 2:49 PM
--- NOTE | 2019-01-13 00:20 | PROGRESS NOTE ---
DATE: 01/12/2019 SUBJECTIVE: Patient has no new complaints. She is able to get out of bed some without assistance. PHYSICAL EXAMINATION: Vital Signs: Temperature 98.4 degrees, pulse 90, respiratory rate 18, BP 132/58. General: Patient is awake. She is in no respiratory distress. HEENT: Normocephalic. Neck: Supple. Cardiovascular: Regular rate. Chest: Clear. Abdomen: Soft. Extremities: Moves all extremities. ASSESSMENT: 1. Schizophrenia with recent visual hallucinations, appears to be improved. 2. Hyponatremia, improved. 3. Anemia of chronic disease. 4. Diabetes. 5. Hypertension. PLAN: We are going to continue patient in the hospital for now. [facility] has declined admission. Further orders as needed. We are going to consult Physical Therapy and consider rehab. cc: Oziel Dominguez MD
[2019-01-13] MEDS: PRILOSEC PO SCH (06:09)
[2019-01-13] MEDS: BYSTOLIC PO SCH (09:25)
[2019-01-13] MEDS: COZAAR PO SCH (09:25)
[2019-01-13] MEDS: DEMADEX PO SCH (09:26)
[2019-01-13] MEDS: VITAMIN B-12 PO SCH (09:26)
[2019-01-13] MEDS: KLOR-CON PO SCH (09:27)
[2019-01-13] MEDS ORDERED: COLACE PO PRN (12:45)
[2019-01-13] MEDS ORDERED: TUMS PO SCH (13:00)
[2019-01-13] MEDS: COGENTIN PO SCH ×2 (13:38→20:14)
[2019-01-13] MEDS: TUMS PO SCH ×3 (13:56→20:14)
--- NOTE | 2019-01-13 15:08 | PROGRESS NOTE ---
DATE: 01/13/2019 SUBJECTIVE: Patient herself has no complaints. There is no family available. PHYSICAL EXAMINATION: Vital Signs: Temperature 98 degrees, pulse 90, respiratory rate 18, BP 132/58. General: Patient is awake, alert. She is in no current distress. Does not answer questions nor follow commands. HEENT: Normocephalic. Neck: Supple. Cardiovascular: Regular rate. Chest: Clear. Abdomen: Soft, obese, nondistended. Extremities: Moves all extremities. ASSESSMENT: 1. Schizophrenia with recent hallucinations. 2. Hyponatremia, stable. 3. Adult failure to thrive. Patient is able to ambulate out into the sotelo without assistance. 4. Diabetes. 5. Hypertension. PLAN: Most likely the patient will be discharged home. She currently is able to ambulate without assistance. [facility] has declined transfer. cc: Oziel Dominguez MD
[2019-01-13 17:03] LABS: CALCIUM 7.5 mg/dL (8.8-10.2); POTASSIUM 4.4 mmol/L (3.5-5.1)
[2019-01-13 17:10] LABS: MAGNESIUM 0.9 mg/dL (1.5-2.7)
[2019-01-13] MEDS ORDERED: MAGNESIUM SULFATE 2 GM/S.W.I. 2 GM/50 ML IVPB IV ONE (17:37)
[2019-01-14] MEDS: PRILOSEC PO SCH (06:25)
[2019-01-14 06:26] LABS: HEMOGLOBIN 8.4 g/dL (12.0-16.0); MCH 24.1 PG (27-31); MCV 80.5 FL (81-99); MPV 8.4 FL (7.4-10.4); RBC 3.48 XMIL (4.2-5.4); RDW 20.3 % (11.5-14.5); WBC 5.9 X1000 (4.8-10.8)
[2019-01-14] MEDS: COGENTIN PO SCH ×3 (06:26→21:24)
[2019-01-14 06:46] LABS: ALBUMIN 2.8 g/dL (3.5-5.0); CALCIUM 7.8 mg/dL (8.8-10.2); MAGNESIUM 1.3 mg/dL (1.5-2.7); POTASSIUM 4.1 mmol/L (3.5-5.1); TOTAL BILIRUBIN 0.5 mg/dL (0.20-1.00)
[2019-01-14] MEDS ORDERED: MAGNESIUM SULFATE 2 GM/S.W.I. 2 GM/50 ML IVPB IV ONE (08:44)
[2019-01-14] MEDS: KLOR-CON PO SCH (10:11)
[2019-01-14] MEDS: BYSTOLIC PO SCH (10:11)
[2019-01-14] MEDS: COZAAR PO SCH (10:11)
[2019-01-14] MEDS: TUMS PO SCH ×4 (10:12→21:24)
[2019-01-14] MEDS: VITAMIN B-12 PO SCH (10:12)
[2019-01-14] MEDS: DEMADEX PO SCH (10:12)
--- NOTE | 2019-01-14 12:44 | PROGRESS NOTE ---
DATE: 01/14/2019 SUBJECTIVE: Patient notes that she is feeling better. She currently is declining rehab. PHYSICAL EXAMINATION: Vital Signs: Reviewed. Temperature 98 degrees, pulse 81, respiratory rate 18, BP 123/80. General: Patient is awake, alert, currently in no distress. HEENT: Normocephalic. Neck: Supple. Cardiovascular: Regular rate. Chest: Clear. Abdomen: Soft. Extremities: Moves all extremities. ASSESSMENT: 1. Adult failure to thrive. 2. Generalized weakness. 3. Abdominal pain. 4. Paranoid schizophrenia. PLAN: We will continue patient in the hospital. Continue physical therapy. We will get Geophysical Data Technician involved for discharge planning. We will have her assisted living facility re-evaluate to see if she is able to come back without rehab. cc: Oziel Dominguez MD
[2019-01-15] MEDS: COGENTIN PO SCH ×3 (06:22→21:57)
[2019-01-15] MEDS: PRILOSEC PO SCH (06:22)
[2019-01-15] MEDS: DEMADEX PO SCH (09:02)
[2019-01-15] MEDS: COZAAR PO SCH (09:02)
[2019-01-15] MEDS: KLOR-CON PO SCH (09:02)
[2019-01-15] MEDS: VITAMIN B-12 PO SCH (09:02)
[2019-01-15] MEDS: BYSTOLIC PO SCH (09:02)
[2019-01-15] MEDS: TUMS PO SCH ×4 (09:03→21:57)
--- NOTE | 2019-01-15 14:28 | PROGRESS NOTE ---
DATE: 01/15/2019 SUBJECTIVE: The patient notes that she is feeling better. She does not want to go to rehab. PHYSICAL EXAMINATION: Vital Signs: Reviewed. Temp 98 degrees, pulse 68, respiratory rate 18, BP 128/52. General: The patient is awake, alert. She is in no distress. She is sitting up in the chair. HEENT: Normocephalic. Neck: Supple. Cardiovascular: Regular rhythm and rate. Chest: Clear, nonlabored. Abdomen: Soft, nondistended. Extremities: Moves all extremities. Neurologic: No focal changes. ASSESSMENT: 1. Hyponatremia, resolved. Sodium was 135. 2. Hypomagnesemia, resolved. 3. Adult failure to thrive with generalized weakness. The patient is starting to ambulate better. 4. Diabetes. 5. Hypertension. 6. Schizophrenia. PLAN: We have restarted her home medications. Will continue to follow her sodium. The patient currently is refusing rehab. Discussed with her that home health would have to come re-evaluate before she can be discharged home. cc: Oziel Dominguez MD
[2019-01-16] MEDS: COGENTIN PO SCH ×2 (06:38→13:30)
[2019-01-16] MEDS: PRILOSEC PO SCH (06:38)
[2019-01-16] MEDS: DEMADEX PO SCH (09:43)
[2019-01-16] MEDS: COZAAR PO SCH (09:43)
[2019-01-16] MEDS: BYSTOLIC PO SCH (09:43)
[2019-01-16] MEDS: KLOR-CON PO SCH (09:43)
[2019-01-16] MEDS: VITAMIN B-12 PO SCH (09:43)
[2019-01-16] MEDS: TUMS PO SCH ×2 (09:43→13:30)
[2019-01-16 11:11] LABS: OCCULT BLOOD 1 NEGATIVE (NEGATIVE)
[2019-01-16 11:37] VITALS: BP 114/64
--- NOTE | 2019-01-16 13:09 | DISCHARGE SUMMARY ---
ADMISSION DATE: 01/11/2019 DISCHARGE DATE: 01/16/2019 ADMISSION DIAGNOSES: 1. Hyponatremia. 2. Urinary tract infection. 3. History of schizophrenia with recent visual disturbances. 4. Anemia of chronic disease. 5. Diabetes mellitus type 2. 6. Hypertension. 7. Acute kidney injury on top of chronic kidney disease stage 3. DISCHARGE DIAGNOSES: 1. Hyponatremia, resolved with a sodium of 135. 2. Hypomagnesemia, resolved. 3. Adult failure to thrive with generalized weakness. 4. Diabetes mellitus type 2. 5. Hypertension. 6. Schizophrenia, stable. 7. Report of urinary tract infection with no growth in the urine. CONSULTATIONS: 1. Case Management. 2. Service Writer. 3. Wound Care. 4. Physical Therapy. 5. There were no physician consults. SURGICAL PROCEDURE HISTORY: None. HOSPITAL COURSE: Ms. Laurel Hernandez is a 78-year-old female with a medical history of schizophrenia and recent visual disturbances, who apparently comes from an assisted living facility. They sent her here for symptoms of urinary tract infections. She was having visual disturbances, thinking that there were bugs, some intermittent diarrhea. Apparently, she has had this history with urinary tract infections in the past. When she was assessed, she was calm, pleasant, lying in bed. Laboratory data revealed that she had a low hemoglobin level of 7.3, was given a unit of blood. She was negative for a GI bleed. The stool for occult blood on 01/09/2019 and 01/16/2019 were both negative. Electrolyte disturbances were replaced. Sodium was low. It was normal on discharge. Magnesium was replaced. Apparently, [facility] was going to be consulted, but I believe she was not followed up with [facility]. They declined admission. Apparently, the schizophrenia with visual disturbances improved during her stay. She also had diagnosis of adult failure to thrive. She was able to get up and ambulate in the sotelo without assistance, but still required some physical therapy. Her guardian, Nguyen Moss, stated that she could not be discharged home, she needed to go to a rehab facility before she could go to assisted living facility, and so she will go to [facility] prior to discharge back to her assisted living facility. DISCHARGE VITAL SIGNS: Temperature 98 degrees, heart rate 87, respiratory rate 18, blood pressure 144/64, O2 saturation 96% on room air. DISCHARGE LABORATORY DATA: White blood cells 5000, hemoglobin 8, hematocrit 28, platelet count 467,000. Sodium 135, potassium 4.1, BUN 11, creatinine is 1.0, glucose 100. Urine culture negative. Stools for blood were negative. PERTINENT IMAGING: On 01/09/2019, head CT: No acute findings. Abdominal x-ray: Mild gaseous distention of the stomach, which was most prominent in the left lower quadrant. On 01/12/2019, she had a chest x-ray that showed hiatal hernia, mildly shallow inspiration, but nothing acute. Her EKG on admission was normal sinus rhythm, showed a rate of 80, and a QTC of 645, that is a very prolonged QT, but on the EKG, there is a lot of artifact, so QTc is not accurate. DISCHARGE MEDICATIONS: 1. Colace 100 mg p.o. nightly. 2. Banophen 25 mg p.o. every 6 hours p.r.n. 3. Benztropine mesylate 1 mg p.o. t.i.d. 4. Bystolic 10 mg p.o. daily. 5. Calcium carbonate 500 mg p.o. 4 times a day. 6. Trazodone 150 mg p.o. nightly p.r.n. 7. Imodium 2 mg p.o. p.r.n. 8. Invega 156 mg injection every 30 days. 9. Potassium chloride 10 mEq daily. 10. Torsemide 10 mg p.o. daily. 11. Tradjenta 5 mg p.o. daily. 12. Vitamin B12, 1000 mg p.o. daily. 13. Cozaar 100 mg p.o. daily. DISCHARGE ACTIVITY: As tolerated with Physical Therapy. PHYSICAL FOLLOWUPS: Dr. Paco Hubbard, her primary care provider. DISCHARGE INSTRUCTIONS: If her condition changes, contact physician and/or return to the emergency department. Changes may include, but are not limited to, shortness of breath, increased fatigue, excessive bleeding, unexplained weight loss or gain, unmanageable pain, signs or symptoms of infection. DISCHARGE DIET: Heart healthy. DISCHARGE DISPOSITION: [facility]. Dictated by KHUSHI Pierre for Oziel Dominguez MD cc: KHUSHI Pierre MD
--- NOTE | 2019-01-17 10:09 | PROGRESS NOTE ---
DATE: 01/16/2019 Patient seen and examined by myself. Full note dictated and discussed with nurse practitioner. The patient is going to be discharged to rehab. She was admitted to the hospital with hyponatremia which has resolved with the last sodium 135. She was noted to have hypomagnesemia, which also resolved. cc: Oziel Dominguez MD
[2019-01-23] MEDS ORDERED: INVEGA SUSTENNA MISC SCH (09:00)
== END 2019-01-16 14:20 | DRG 641 ==
LOC: P.MEDSURG 16:16 → P.ED 16:16 → SUATTDRO 01-10 02:33
PROVIDERS: ATTEND Family Medicine

== ENCOUNTER 2019-02-11 10:54 | Inpatient (IN) ==
[2019-02-11] MEDS ORDERED: NS 1,000 ML IV ONE ×3 (11:19→16:00)
--- NOTE | 2019-02-11 11:36 | EKG Report ---
Test Performed on : 02/11/2019 11:29:06 AM Test Reason : CP Blood Pressure : / mmHG Vent. Rate : 085 BPM Atrial Rate : 087 BPM P-R Int : 000 ms QRS Dur : 122 ms QT Int : 372 ms P-R-T Axes : 000 058 017 degrees QTc Int : 442 ms Atrial fibrillation. Right bundle branch block Abnormal ECG When compared with ECG of 09-JAN-2019 22:00, (Unconfirmed) Atrial fibrillation. has replaced Sinus rhythm. Right bundle branch block has replaced Incomplete right bundle branch block Borderline criteria for Lateral infarct are no longer present Unconfirmed Result
[2019-02-11 11:56] LABS: HEMOGLOBIN 6.6 g/dL (12.0-16.0)
[2019-02-11 12:11] LABS: ALBUMIN 2.7 g/dL (3.5-5.0); POTASSIUM 5.4 mmol/L (3.5-5.1); TOTAL BILIRUBIN 0.3 mg/dL (0.20-1.00); TOTAL PROTEIN 5.7 g/dL (6.3-8.3)
[2019-02-11 12:31] LABS: BILIRUBIN URINE NEGATIVE (NEGATIVE); BLOOD URINE NEGATIVE (NEGATIVE); CLARITY CLEAR (CLEAR); COLOR YELLOW; GLUCOSE URINE NEGATIVE (NEGATIVE); KETONE URINE NEGATIVE (NEGATIVE); LEUKOCYTES URINE NEGATIVE (NEGATIVE); NITRITE URINE NEGATIVE (NEGATIVE); PROTEIN URINE TRACE mg/dL (NEGATIVE); SP GRAVITY URINE 1.015; UROBILINOGEN URINE NORMAL
[2019-02-11 12:33] LABS: URINE EPITHELIAL CELLS <10 /HPF (<10)
[2019-02-11 12:34] LABS: URINE CAST GRANULAR PRESENT /LPF; URINE SOURCE CATH
[2019-02-11 12:35] LABS: LYMPHS 3 % (21-51); MONO 4 % (1-9); SEGS 93 % (42-75)
[2019-02-11 12:36] LABS: ANISOCYTOSIS 1+; MICROCYTOSIS 1+; NRBC 1 % (0-0)
--- NOTE | 2019-02-11 13:08 | Diag Imaging Result Doc PS360 ---
EXAM : CT HEAD/C-SPINE W/O CONTRAST HISTORY: head injury/pain TECHNIQUE: 1. CT head without contrast 2. CT cervical spine without contrast COMPARISON: Head compared to 01/09/2019 FINDINGS: Head: No parenchymal hemorrhage. No epidural or subdural hematoma. No subarachnoid hemorrhage. Mild atrophy. No mass identified on this noncontrasted exam. No hydrocephalus. Nasal fracture. No sinus opacification or air-fluid levels. Cervical spine: Mild scoliosis. Mild to moderate degenerative changes throughout the cervical spine. No precervical soft tissue swelling. No subluxation. No fracture. Right pleural effusion. IMPRESSION: Head: No intracranial injury. Nasal fracture. Cervical spine: No acute fracture. This exam was performed using automated exposure control, adjustment of mA or kV according to patient size, and/or use of iterative reconstruction technique. Electronically signed by Jessee Martinez 02/11/2019 1:05 PM
--- NOTE | 2019-02-11 13:23 | Diag Imaging Result Doc PS360 ---
EXAM: CT MAXILLOFACIAL(SINUS) W/O CO HISTORY: fall, facial injury TECHNIQUE: CT face without contrast COMPARISON: None. FINDINGS: Nasal fracture. No other fracture or dislocation. No sinus opacification or air-fluid levels. 10 mm lucent area in the mid anterior mandible which may be a cyst periodontal disease. Arthritis to the temporomandibular joints IMPRESSION: Nasal fracture Electronically signed by Jessee Martinez 02/11/2019 1:21 PM
--- NOTE | 2019-02-11 13:33 | Diag Imaging Result Doc PS360 ---
EXAM: CT ABDOMEN/PELVIS W/O CONTRAST HISTORY: LLQ pain, hypotension TECHNIQUE: CT abdomen and pelvis without contrast COMPARISON: 10/07/2018 FINDINGS: There is a moderate-sized right pleural effusion measuring 3.4 cm posteriorly and inferiorly in the midline. Tiny left effusion. Moderate to large hiatal hernia. Interval development of a moderate amount of abdominal and pelvic ascites. The gallbladder has been removed. There are scattered hepatic and splenic granuloma. No other focal abnormalities identified on this noncontrasted study. No inflammation about the pancreas. Normal adrenal glands. No renal stones. No hydronephrosis. Severe atherosclerosis. There is stool throughout the colon. There are scattered colonic diverticula. No bowel obstruction. No focal uterine abnormality. The urinary bladder is moderately distended. IMPRESSION: 1.Interval development of a moderate amount of abdominal and pelvic ascites 2.Moderate right pleural effusion which has slightly increased in size 3.Large hiatal hernia 4.Cholecystectomy 5.Severe atherosclerosis 6.Constipation 7.Colonic diverticulosis This exam was performed using automated exposure control, adjustment of mA or kV according to patient size, and/or use of iterative reconstruction technique. Electronically signed by Jessee Martinez 02/11/2019 1:31 PM
[2019-02-11 13:35] LABS: EOS# 0.02 X1000 (0.0-0.7); EOS% 0.2 % (0.0-10.0); HEMATOCRIT 20.9 % (37.0-47.0); IMM GRAN# 0.04 X1000 (0.0-0.04); IMM GRAN% 0.5 % (0.0-0.5); LYMPH# 0.25 X1000 (1.2-3.4); LYMPH% 2.9 % (20.5-51.1); MCH 24.5 PG (27-31); MCHC 31.6 g/dL (33-37); MCV 77.7 FL (81-99); MONO# 0.71 X1000 (0.11-0.59); MONO% 8.3 % (1.7-9.3); MPV 8.8 FL (7.4-10.4); NEUT% 88.1 % (42.2-75.2); PLT 394 X1000 (130-400); RBC 2.69 XMIL (4.2-5.4); RDW 20.6 % (11.5-14.5); WBC 8.52 X1000 (4.8-10.8)
[2019-02-11] MEDS ORDERED: ZOFRAN IV PRN ×2 (13:41→15:55)
[2019-02-11] MEDS ORDERED: SODIUM CHLORIDE 0.9% INJ SCH (13:45)
[2019-02-11] MEDS ORDERED: PROTONIX IV SCH (13:45)
[2019-02-11] MEDS ORDERED: NS 500 ML IV ONE (13:46)
--- NOTE | 2019-02-11 14:43 | Diag Imaging Result Doc PS360 ---
EXAM: CHEST-1 VIEW HISTORY: hypotension TECHNIQUE: Chest single view COMPARISON: 01/19/2019 FINDINGS: The lungs are well expanded. The heart is not enlarged. The vessels are not distended. There are no infiltrates. No effusion identified on this portable chest. Large hiatal hernia. IMPRESSION: Negative exam. Electronically signed by Jessee Martinez 02/11/2019 2:40 PM
--- NOTE | 2019-02-11 15:04 | HISTORY AND PHYSICAL ---
CHIEF COMPLAINT: Hypotension, fall. HISTORY OF PRESENT ILLNESS: This is a 78-year-old female with a history of schizophrenia, diabetes mellitus, who presents to the emergency room after [place] [facility] [place]. According to the chart, the patient's blood pressure was 76/45 shortly after being found. The patient remembers sitting on the side of the bed getting ready to go downstairs to eat. She stood up without using her walker and she said that she remembers hitting the floor and hearing a big crack and laying there until someone found her. According to the ER record, she laid on the floor approximately 20 minutes before being found. The patient does take antihypertensives and according to the ER physician record, there is conflicting information about exactly what medicines the patient was given prior to this fall. PAST MEDICAL HISTORY: 1. Diabetes mellitus. 2. Hypertension. 3. Chronic kidney disease. 4. Schizophrenia. 5. Dementia. 6. Anemia of chronic disease. 7. Chronic constipation. PAST SURGICAL HISTORY: Cholecystectomy, skin cancer removal from her face. SOCIAL HISTORY: She is a [place] [facility] She denies any alcohol, tobacco, or illicit drug use. She does have a niece that lives close by and is active in her care. FAMILY HISTORY: Positive for hypertension and diabetes for her parents. REVIEW OF SYSTEMS: Difficult to obtain from the patient due to her dementia. She denied any dizziness, any fevers or chills, any chest pain or palpitations, shortness of breath, cough, any nausea, vomiting, diarrhea, black or bloody vomitus or stools, any hematuria, dysuria, frequency, urgency. PHYSICAL EXAMINATION: GENERAL: This is a 78-year-old female who is lying on the stretcher in the emergency room in no distress. VITAL SIGNS: Blood pressure is 100/52 with a heart rate of 78, respirations are 20, temperature is 98.9 degrees oral with room air saturations 95 to 97 percent. HEENT: Head is normocephalic, atraumatic. Mucous membranes are dry. NECK: Supple with trachea midline. CARDIOVASCULAR: Regular rate and rhythm. S1 and S2 appreciated. She has bilateral lower extremity edema with peripheral pulses palpable x4 extremities. PULMONARY: Breath sounds are clear with no increased work of breathing noted. Chest rises and falls symmetrically with respiration. Chest wall is nontender to palpation. GASTROINTESTINAL: Abdomen is soft, nontender, nondistended with bowel sounds in all 4 quadrants. SKIN: Warm and dry. She is pale. She does have abrasion to her forehead, her nose and her right cheek. NEUROLOGIC: She is alert, she is oriented to person, to her niece. She knows she is at the hospital. She is unable to give the day or the year. Her niece states this is her baseline. LABORATORY DATA: WBC is 8.5 with hemoglobin 6.6, hematocrit 20.9, and platelets of 394,000. Sodium 122, potassium 5.4, BUN 53, creatinine 3 with a glucose of 140. Urinalysis is essentially negative. IMAGIN. CT of the head and cervical spine reveals no acute intracranial injury. Nasal fracture. 2. Cervical spine reveals no acute fracture. 3. Maxillofacial CT reveals a nasal fracture. No other fracture or dislocation. 4. CT of the abdomen and pelvis reveals interval development of a moderate amount of abdominal and pelvic ascites, moderate right pleural effusion, large hiatal hernia, cholecystectomy, constipation, colonic diverticulosis. ASSESSMENT: 1. Hypotension. 2. Syncope. 3. Acute kidney injury overlying chronic kidney disease. 4. Hyponatremia. 5. Hyperkalemia. 6. Anemia with a possible gastrointestinal bleed. 7. Diabetes mellitus. 8. Schizophrenia. 9. Nasal fracture. 10. Moderate-sized right pleural effusion. PLAN: The patient will be admitted and transferred to ICU at [facility] for close monitoring. She has been typed and crossed in the emergency room. We will transfuse. Neuro checks. Check stool for blood. We will recheck a CBC in the morning. We will continue with IV hydration, renal dosed medications as appropriate, hold any potassium containing medications and recheck labs in the morning. She will be n.p.o. Start Protonix IV q.12 hours. Pattern blood glucose with sliding scale insulin. Keep head of the bed up at least 30 degrees at all times. Plan was discussed with Dr. Fallon, further treatments pending hospital course. Dictated by KHUSHI Gomez for Selvin Fallon MD cc: KHUSHI Gomez MD
[2019-02-11] MEDS ORDERED: HUMALOG (PARKWAY) SUBQ SCH (16:00)
[2019-02-11] MEDS ORDERED: NS 1,000 ML IV SCH (16:30)
[2019-02-11] MEDS ORDERED: ALBUMIN 25% IV ONE (16:57)
[2019-02-11] MEDS ORDERED: LEVOPHED 8 MG in D5 1/2 NS 250 ML IV SCH (17:00)
[2019-02-11] MEDS: NS 1,000 ML IV SCH (17:01)
[2019-02-11] MEDS: HUMALOG SUBQ SCH ×2 (17:02→20:03)
[2019-02-11 17:14] LABS: UR CREAT RANDOM 64.3 mg/dL (11-20)
[2019-02-11] MEDS ORDERED: ROCEPHIN 1 GM in NS 50 ML IV ONE (17:15)
[2019-02-11 17:29] LABS: URINE SOURCE CATH
[2019-02-11 17:32] LABS: BILIRUBIN URINE NEGATIVE (NEGATIVE); BLOOD URINE TRACE (NEGATIVE); COLOR YELLOW; GLUCOSE URINE NEGATIVE (NEGATIVE); KETONE URINE NEGATIVE (NEGATIVE); LEUKOCYTES URINE NEGATIVE (NEGATIVE); NITRITE URINE NEGATIVE (NEGATIVE); PH URINE 5.5; PROTEIN URINE NEGATIVE (NEGATIVE); SP GRAVITY URINE 1.011; TURBIDITY URINE CLEAR (CLEAR); UROBILINOGEN URINE NORMAL (NORMAL)
[2019-02-11 17:33] LABS: UR EPITHELIAL CELLS <10 /HPF (<10); URINE BACTERIA NEGATIVE /HPF; URINE RBC <10 /HPF (<10); URINE WBC <10 /HPF (<10)
[2019-02-11 17:38] LABS: INR 1.25; PROTIME 15.9 Seconds (11.0-16.0)
--- NOTE | 2019-02-11 17:48 | PROGRESS NOTE ---
DATE: 02/11/2019 SUBJECTIVE: Ms Hernandez currently refers to be doing a little better. Ms Hernandez was transferred from [place] today for higher level of care. She is a resident of [facility] where this morning I understand she fell in her room and could not get up. The staff went to help her. Initially, she was found to have a blood pressure of 76/45. I also understand that throughout yesterday and probably the days before she is in fairly running borderline low blood pressures. In any case, Ms. Hernandez was sent to the emergency room and she was found to have a systolic blood pressure of 81, diastolic of 43. She brought here mainly due to suspicion of GI bleed for further management. OBJECTIVE: Currently her blood pressure is 93/62, pulse of 84, respiration is 15,temperature is 98.3 degrees.General: Ms. Hernandez is a 78-year-old female. She is in bed. She does not seems to be in any distress at this point. HEENT: Mucosa is slightly pale but anicteric and acyanotic. Neck: Neck is supple. No jugular venous distention. There is a few bruises over the forehead and the nasal bridge. Chest: Air entry was bilaterally reduced. There is a few crackles in the posterior lung zuniga, more to the right side. Abdomen: Soft. It is globally distended. There is positive fluid shift and shifting dullness. Extremities: Extremities about 2+ pedal edema. BODY AND FENDER WORKER: Patient was awake and alert, did follow some basic commands. LABORATORY DATA: Her lab works have all been reviewed. She has microcytic anemia with a hemoglobin down to 6.6, white cell count and platelet count are within normal range. She has 93% of neutrophils. Her chemistry also shows hyponatremia, hyperkalemia, a mild acidosis, acute on chronic renal failure. Patient's renal function test seems to have a baseline of about 1.1 to 1.5. It is up to 3.0. Her urinalysis shows granular casts, which would be significant for ATN.Imaging Data: Shows the head and cervical spine no acute pathology. The maxillofacial shows nasal fracture. A CT scan of the abdomen and pelvis shows interval development of abdominal and pelvic ascites. There is also a right pleural effusion which has slightly increased in size. There is a large hiatal hernia. There is severe atherosclerosis, constipation and colonic diverticulosis. A chest x-ray was unremarkable. ASSESSMENT: 1. Shock, most likely hypovolemic shock at this point. However, other possible causes of hypotension including medication induced since patient is said to be on losartan, nebivolol and torsemide from home. It is also very possible that Ms Hernandez could be transient adrenal insufficient or an undiagnosed infection. For now, she is getting fluid resuscitation and will re-evaluate. 2. Fluid overload. Ms Hernandez has pleural effusions worse on the right side. She has also ascites and lower extremity edema. It seems to suggest that she is cirrhotic of unclear etiology. For now, we would be extremely judicious with her fluid resuscitation. We will also give her some albumin and start her on a pressor for the hypotension just in an attempt not to give her too much of fluid. 3. Microcytic anemia presumably from GI blood loss. The patient is getting 2 units of packed red blood cells. Since she is cirrhotic we do not want to go more than 7 so for now would only transfuse 2 and re-evaluate her labs. 4. Cirrhosis of unclear etiology, complicated with ascites. We will get the INR. The patient's albumin is low. We will also get hepatitis panel. Gastroenterology has been consulted. We will follow up accordingly. 5. Acute on chronic renal failure. Patient's creatinine has jumped up to 3.0. She has been on a lot of medications which could potentially cause the renal failure. She has also been hypotensive which makes acute tubular necrosis and her urinalysis shows granular casts, which will be significant for acute tubular necrosis. For now, we will try to avoid any nephrotoxin. We will also do some urinary studies as well as renal ultrasound and hopefully get nephrology to see her tomorrow. PLAN: In general, I think Ms. Hernandez is remarkably sick. Blood cultures have been done. I think for now it to be reasonable to start her on antibiotics until we know for sure that there is no infection anywhere. We will also going to limit the fluid since we know she is already fluid overloaded and she might be 3rd spacing. We will give her some albumin and start her on pressors and follow up with her studies accordingly. She is getting 2 units of packed red blood cells for now. 1. . cc: Isaiah Pruett MD
--- NOTE | 2019-02-11 17:53 | HISTORY AND PHYSICAL ---
ADDENDUM TO HISTORY AND PHYSICAL: I saw the patient [id number] and fully agree with the assessment and plan of nurse practitioner, Krista Jessica. This is a 78-year-old lady who was transferred from assisted living [facility], [facility] after she had a fall face down. She was estimated to be lying there for about 20 minutes before they found her. They brought her here to the emergency department at [facility] where she was found to be hypotensive with a blood pressure of 76/45. She has a nasal fracture as well, but no other fractures were noted. We found her to have severe symptomatic anemia causing her to have syncope and hypotension. She is also having hypokalemia with acute kidney injury and hyponatremia along with a small right-sided pleural effusion and ascites. We are going to admit her in the intensive care unit and hydrate her aggressively along with giving her packed red blood cell transfusions. She will also have her electrolyte monitored and we are going to obtain stool for Hemoccult as well as giving her pressors for any hypotension support. The patient will also have Protonix IV and will have a GI consultation for further evaluation. Further recommendations are forthcoming. cc: Selvin Fallon MD
--- NOTE | 2019-02-11 19:15 | Diag Imaging Result Doc PS360 ---
EXAM: US RENAL 2 (RETROPER) COMPLETE HISTORY: laisha/arf TECHNIQUE: Renal ultrasound COMPARISON: None. FINDINGS: The right kidney measures 9.3 x 4.9 x 4.0 cm. Normal renal echotexture. No stone or hydronephrosis. No renal mass. The left kidney measures 9.1 x 4.3 x 4.7 cm. Normal renal echotexture. No stone or hydronephrosis. There is a 2.7 cm cyst in the mid kidney. Moderate to large volume ascites. IMPRESSION: Normal renal echotexture and no hydronephrosis. Electronically signed by Jessee Martinez 02/11/2019 7:12 PM
[2019-02-12] MEDS: NS 1,000 ML IV SCH ×3 (00:14→16:17)
[2019-02-12] MEDS ORDERED: SODIUM CHLORIDE 0.9% INJ SCH (03:00)
[2019-02-12] MEDS: PROTONIX IV SCH ×2 (04:11→15:08)
[2019-02-12 04:18] LABS: BASO# 0.01 X1000 (0.0-0.2); BASO% 0.1 % (0.0-0.8); EOS# 0.11 X1000 (0.0-0.7); EOS% 1.6 % (0.0-10.0); HEMATOCRIT 24.8 % (37.0-47.0); HEMOGLOBIN 7.8 g/dL (12.0-16.0); IMM GRAN# 0.04 X1000 (0.0-0.04); IMM GRAN% 0.6 % (0.0-0.5); LYMPH# 0.47 X1000 (1.2-3.4); MCHC 31.5 g/dL (33-37); MCV 79.5 FL (81-99); MONO# 0.75 X1000 (0.11-0.59); MONO% 11.2 % (1.7-9.3); MPV 8.2 FL (7.4-10.4); NEUT# 5.33 X1000 (1.4-6.5); NEUT% 79.5 % (42.2-75.2); PLT 350 X1000 (130-400); RBC 3.12 XMIL (4.2-5.4); RDW 19.6 % (11.5-14.5); WBC 6.71 X1000 (4.8-10.8)
[2019-02-12 04:24] LABS: INR 1.31; PROTIME 16.5 Seconds (11.0-16.0)
[2019-02-12 04:48] LABS: ALBUMIN 2.9 g/dL (3.5-5.0); CREATININE 2.5 mg/dL (0.5-0.9); POTASSIUM 5.1 mmol/L (3.5-5.1); TOTAL BILIRUBIN 0.71 mg/dL (0.20-1.00); TOTAL PROTEIN 5.8 g/dL (6.3-8.3)
[2019-02-12 05:00] LABS: MAGNESIUM 1.2 mg/dL (1.5-2.7); PHOSPHORUS 3.5 mg/dL (2.7-4.5)
[2019-02-12] MEDS: HUMALOG SUBQ SCH ×4 (06:01→20:34)
[2019-02-12] MEDS ORDERED: MAGNESIUM SULFATE 2 GM/S.W.I. 2 GM/50 ML IVPB IV ONE ×2 (07:46→16:41)
--- NOTE | 2019-02-12 08:28 | PROGRESS NOTE ---
DATE: 02/12/2019 SUBJECTIVE: This morning, Ms. Hernandez refers to be doing fairly okay. She is currently on the norepinephrine just at 5 mcg. She also got a unit of PRBC transfused yesterday. OBJECTIVE: Vital Signs: Blood pressure is 107/55, pulse of 58, respirations 17, temperature is 97.8 degrees. General: Ms. Hernandez is a 78-year-old female. She is in bed. No distress. HEENT: Mucosa is slightly pale, but anicteric and acyanotic. Neck: Supple. Chest: Air entry is bilaterally reduced with a few crackles in the posterior lung zuniga. Cardiovascular: Regular rate and rhythm. No murmurs, no rubs, no gallops. GI: Abdomen is soft. It is globally distended. Minimally tender, but no guarding. There is positive fluid shift and shifting dullness. Extremities: There is 2+ pedal edema. SHOWROOM SALES ASSISTANT: The patient is awake, alert, and oriented. There is no focal neurological deficit. LABORATORY DATA: WBC is 6.71, hemoglobin is up to 7.8, platelet count of 350,000. Chemistry is also reviewed. Creatinine is down to 2.5, BUN is also down to 44. Magnesium is 1.2. ASSESSMENT: 1. Shock, presumably hypovolemic. However sepsis and drug induced could be confounding. The patient continues to be on fluid resuscitation as well as pressors. She is also getting albumin. 2. Anasarca etiology unclear likely from cirrhosis 3. Ascites, likely due to underlying cirrhosis. Needs diagnostic tap 4. Cirrhosis of the liver of unclear etiology. GI has been consulted 5. Acute kidney injury, presumably prerenal. Creatinine is improving. The patient seems to be making adequate urine. We are going to continue with albumin and gentle hydration. In general, I think Ms. Hernandez seems to be remarkably stable at this point. She is on minimum pressor support. Kidney function seems to be improving. Her abdomen is remarkably distended, so we are going to do a bedside paracentesis, diagnostic and probably therapeutic as well. cc: Isaiah Pruett MD MTDJessica
[2019-02-12] MEDS: ALBUMIN 25% IV SCH (08:51)
--- NOTE | 2019-02-12 11:32 | OPERATIVE NOTE ---
PROCEDURE DATE: TYPE OF PROCEDURE: Paracenteses. INDICATION: Both diagnostic and therapeutic. PROCEDURE NOTE: Ms. Hernandez is a 78-year-old female who initially presented to [place] because of low blood pressure, was brought in here with a presumption of possible GI bleed. She has been remarkably hypotensive, which has improved. During her workup, it has been found out that she has remarkable ascites. Liver seems to be cirrhotic on imaging. We are going to do paracenteses primarily for diagnostic purposes. The indications as well as complications, including infection and bleeding have all been discussed with Ms. Hernandez, and she agrees to do the paracentesis. Ultrasound was initially used to localize the deepest pocket in the abdomen, which was on the right lower abdomen. This was marked by the mixer helper. Subsequently, time-out was done. The attending nurse and the nurse dietitian assistant were at the bedside helping. Ms. Hernandez's abdomen was cleaned with povidone and was draped in regular fashion. Subsequently, 1% lidocaine was used as the local anesthetic agent. A little niche was made at the spot with a surgical blade. After that, the trocar was advanced under negative pressure until free-flowing ascitic fluid was obtained. An initial 50 mL of chris to cloudy, yellowish color fluid was obtained for initial studies. Subsequently, 4.5 L of ascitic fluid was obtained freely. Ms. Hernandez tolerated the procedure without any complication. Postoperatively, her vitals remained stable. She had very minimum blood loss. The fluid was sent to the lab for analysis. No complications. cc: Isaiah Pruett MD
[2019-02-12 11:46] LABS: TOTAL PROT BODY FLUID 4.6 g/dL
[2019-02-12 11:48] LABS: ALBUMIN BODY FLUID 2.1 g/dL; AMYLASE BODY FLUID 558 U/L; BODY FLUID SOURCE PERITONEAL FLUID; WBC BF 2078 /cumm
[2019-02-12 12:40] LABS: POLYS 57 %
[2019-02-12 12:41] LABS: MONOS 43 %
--- NOTE | 2019-02-12 14:42 | GASTROENTEROLOGY CONSULTATION ---
DATE: 02/12/2019 REASON FOR CONSULTATION: Anemia, ascites. HISTORY OF PRESENT ILLNESS: This is a 78-year-old female who has been a resident at [facility] for 4 years. Apparently she was found in her room after falling. She was found face down on the carpet at her [facility] residence. Apparently she was also found to have hypotension and was transferred to [facility] for further evaluation. At the time of my evaluation, her niece and nephew were at the bedside and helped with review of systems. The patient has never been and does not have children. Her niece is the power of litigation attorney associate for her healthcare. As far as the time line patient has had some problems since September with low sodium and anemia. She has also been on several antibiotics for frequent urinary tract infections. She was back in the hospital in December at [facility] for 5 days. After that, she went to the [facility] for approximately 21 days and had been back at the [facility] since February 02. On evaluation in the hospital patient was found to have severe anemia with a hemoglobin and hematocrit of 6.6 and 20.9. There has been no reported evidence of active GI bleeding noted. The patient did have findings of ascites and right pleural effusion. A paracentesis was performed this morning by Dr. Pruett where 4 L of fluid were removed. So far, ascitic fluid analysis has showed elevated white blood cell 2078. Other tests are pending. PAST MEDICAL HISTORY: Schizophrenia, diabetes, hypertension, chronic kidney disease, dementia, history of chronic anemia, history of constipation. PAST SURGICAL HISTORY: Cholecystectomy, skin cancer removed from her face. ALLERGIES: Penicillins causing a rash. Sulfonamide antibiotics causing a rash. HOME MEDICATIONS: 1. Acetaminophen 500 mg every 6 hours as needed. 2. Benztropine Mesylate 1 mg 3 times a day. 3. Tums 500 mg 4 times a day. 4. Vitamin B12, 1000 mcg daily. 5. BeneFin 25 mg twice a day. 6. Colace 100 mg every night as needed. 7. Ferrous sulfate 325 mg daily. 8. Tradjenta 5 mg daily. 9. Imodium 2 mg as needed. 10. Losartan 100 mg daily. 11. Bystolic 10 mg daily. 12. Omeprazole 20 mg daily. 13. Invega Sustenna 156 mg IM as directed. 14. Potassium 10 mEq daily. 15. Torsemide 10 mg daily. 16. Desyrel 150 mg every night. SOCIAL HISTORY: She resides at [facility]. No alcohol tobacco or drug use. Niece and a nephew assist with her care. REVIEW OF SYSTEMS: Per history of present illness. PHYSICAL EXAMINATION: Vital Signs: Temperature 97.8 degrees, pulse 58, respirations 17, blood pressure 107/55. General: Patient was awake. She was somewhat alert. HEENT: Bruising and redness on her face where she fell. She did have a nasal fracture. Respiratory: Lung sounds essentially clear. Cardiovascular: Regular rate and rhythm. Abdomen: Soft. Some distention but nurse states she has had improvement in distention and abdomen is more soft since the paracentesis was done this morning. LABORATORY: Hematology WBC 6.71, hemoglobin 7.8, hematocrit 24.8, MCV 79.5, platelets 352,000. Coagulation: Protime 16.5, INR 1.31. Chemistry: Sodium 131 potassium 5.1, chloride 99, CO2 18, BUN 44, creatinine 2.5, glucose 95, phosphorus 3.5, magnesium 1.2, total bilirubin 0.71. AST 12, ALT 6, alkaline phosphatase 71, albumin 2.9. CEA 41.8. ASSESSMENT AND PLAN: 1. Hypovolemia possible sepsis. Patient is on antibiotics. 2. Ascites. The patient has had a paracentesis with 4 L of fluid removed. Awaiting on full ascitic fluid analysis. 3. Acute kidney injury. Continue to monitor. Patient has received albumin and IV fluids. PLAN: We will continue to monitor hemoglobin and hematocrit. Monitor for any signs of active bleeding. Waiting on ascitic fluid analysis for further evaluation. Will continue to follow. Further plans will be made as needed. I have discussed this case with Dr. Vásquez. Thank you for this consultation. Dictated by KHUSHI Woo for Baiorn Vásquez MD cc: KHUSHI Gomez MD
[2019-02-12] MEDS: ROCEPHIN 1 GM in NS 50 ML IV SCH (17:06)
[2019-02-13] MEDS: PROTONIX IV SCH ×2 (02:15→15:31)
[2019-02-13 06:24] LABS: BASO# 0.01 X1000 (0.0-0.2); BASO% 0.2 % (0.0-0.8); EOS# 0.07 X1000 (0.0-0.7); EOS% 1.1 % (0.0-10.0); HEMATOCRIT 26.2 % (37.0-47.0); HEMOGLOBIN 8.1 g/dL (12.0-16.0); IMM GRAN# 0.03 X1000 (0.0-0.04); IMM GRAN% 0.5 % (0.0-0.5); LYMPH# 0.26 X1000 (1.2-3.4); LYMPH% 3.9 % (20.5-51.1); MCH 25.1 PG (27-31); MCHC 30.9 g/dL (33-37); MCV 81.1 FL (81-99); MONO# 0.84 X1000 (0.11-0.59); MONO% 12.7 % (1.7-9.3); MPV 8.6 FL (7.4-10.4); NEUT# 5.41 X1000 (1.4-6.5); NEUT% 81.6 % (42.2-75.2); PLT 340 X1000 (130-400); RBC 3.23 XMIL (4.2-5.4); RDW 19.8 % (11.5-14.5); WBC 6.62 X1000 (4.8-10.8)
[2019-02-13 06:31] LABS: RETIC% 0.77 % (0.8-2.1); RETIC-HE 32.1 PG (28.2-36.6)
[2019-02-13 06:54] LABS: ALB/GLOB RATIO 1.1; ALBUMIN 2.7 g/dL (3.5-5.0); CREATININE 1.7 mg/dL (0.5-0.9); MAGNESIUM 2.1 mg/dL (1.5-2.7); PHOSPHORUS 2.8 mg/dL (2.7-4.5); POTASSIUM 4.4 mmol/L (3.5-5.1); TOTAL BILIRUBIN 0.38 mg/dL (0.20-1.00); TOTAL PROTEIN 5.2 g/dL (6.3-8.3)
[2019-02-13 07:11] LABS: FERRITIN 500 ng/mL (13-150)
[2019-02-13 07:14] LABS: INR 1.37; PROTIME 17.1 Seconds (11.0-16.0)
[2019-02-13] MEDS: HUMALOG SUBQ SCH ×4 (07:31→21:16)
[2019-02-13] MEDS: NS 1,000 ML IV SCH ×2 (07:31→08:03)
[2019-02-13] MEDS: ALBUMIN 25% IV SCH (08:03)
[2019-02-13 09:55] LABS: HEPATITIS PROFILE ACUTE SEE COMMENTS
--- NOTE | 2019-02-13 12:34 | PROGRESS NOTE ---
DATE: 02/13/2019 SUBJECTIVE: This morning Ms. Hernandez refers to be doing a lot better. Denies any new complaints. Her niece, who is also her power of mergers and acquisitions attorney (Ms Nguyen Moss) was at the bedside at the time of the encounter. OBJECTIVE: Vital signs: Blood pressure is 118/56, pulse of 88, respiration is 16, temperature is 98.6 degrees. General: Ms. Hernandez 78-year-old elderly female. She is in bed, no seemingly distress. HEENT: Mucosa is pink and moist. Anicteric. Acyanotic. Neck: Supple. Chest: Good air entry bilateral. There was no crepitations, no rhonchi. Cardiovascular: Regular rate and rhythm. No murmurs, no rubs, no gallops.. Gastrointestinal/Abdomen: Soft, nontender. There is some mild shifting dullness. Extremities: Trace pedal edema. Central nervous system: Patient is awake, alert. Does have some residual tremors, especially in the lower extremities. LABORATORY DATA: WBC is 6.26, hemoglobin is 8.1, platelet count of 340,000. Retic count is 0.77 with absolute retic count less than 0.5. Chemistry is also reviewed, which has significantly improved. The patient's creatinine is down to 1.7 and BUN is down to 28. Folate is 4.2. The patient's CEA is 41.8. CA-125 is 1912. The hepatitis panel was negative. The AFB smear of the peritoneal fluid shows no AFB. ASSESSMENT: 1. Shock presumably hypovolemic with possible superimposed drug and sepsis. The patient is currently off the vasopressor, hemodynamically now stable. 2. Ascites. The patient is status post paracenteses. Fluid analysis is consistent with peritonitis. However, it does not appear to be spontaneous. The patient has elevated neutrophils, but also has remarkably elevated lymphocytes. Her other serologies are concerning for underlying malignancy. We are pending the cytology. 3. Elevated CA-125, associated with exudative ascites. 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 We are pending the cytology and we will consult both Hematology/Oncology and Palliative Nurse as well. 4. Acute on chronic renal failure. Creatinine continues to be trending down. The patient is making adequate urine output. We will continue with the gentle hydration. 5. History of schizophrenia, controlled on medications. We will restart the patient back on her home medicines. 6. Residual tremors. This I have been told is due to antipsychotic side effects. 7. Microcytic anemia with extremely hypoproliferative bone marrow state. The patient has been given a unit of PRBC transfusion. Hemoglobin and hematocrit is up to 8.1. Folate is low so we are replacing. So in general, Ms. Hernandez seems to be now a little better. She is not hypotensive anymore. She is not on any pressor. Her kidney functions seems to be improving and she is now hemodynamically stable. Both serologies and the ascitic fluid results are concerning for underlying malignancy, presumably an ovarian source. We have consulted Hematology/Oncology and GI is also on board. We are going to transfer Ms. Hernandez from the ICU to the medical floor. Ms Hernandez's niece named Nguyen Moss is the power of mergers and acquisitions attorney and her number is [phone]. I have explained the findings to her. She does understand and she is also waiting to talk with both Palliative Nurse and the Hematology/Oncology. She also understands that the cytology is pending and will help to determine the care going forward. cc: Isaiah Pruett MD MTDD
[2019-02-13] MEDS ORDERED: COLACE PO PRN (14:24)
[2019-02-13] MEDS ORDERED: TYLENOL PO PRN (14:24)
[2019-02-13] MEDS: TUMS PO SCH ×3 (15:31→21:27)
[2019-02-13] MEDS: COGENTIN PO SCH ×2 (15:31→18:45)
[2019-02-13] MEDS: ROCEPHIN 1 GM in NS 50 ML IV SCH (18:45)
[2019-02-13] MEDS ORDERED: DESYREL PO SCH ×2 (21:00→21:27)
[2019-02-13] MEDS: BENADRYL PO SCH (21:16)
--- NOTE | 2019-02-13 21:42 | GASTROENTEROLOGY PROGRESS NOTE ---
DATE: 02/13/2019 Patient denies complaints at present time. Her niece is at the bedside. Ascitic fluid analysis reviewed did not show evidence of portal hypertension. She has been treated for possible peritonitis. She has had findings of elevated CEA and CA-125 waiting on cytology from paracentesis. Vital Signs: Temperature 98.7 degrees, pulse 92, respirations 20, blood pressure 126/51. General: Patient is awake and alert, no acute distress. LABORATORY: Hematology, WBC 6.62, hemoglobin 8.1, hematocrit 26.2, MCV 81.1, platelet 340,000. Chemistry sodium 136, potassium 4.4, chloride 105, CO2 19, BUN 28, creatinine 1.7, glucose 71. ASSESSMENT AND PLAN: 1. Sepsis, hypovolemia. Patient is currently off of vasopressors. 2. Ascites. Patient has had paracentesis with 4 L of fluid removed, possibility of peritonitis with elevated WBC count. SAAG less than 1.1 so not consistent with portal hypertension. 3. Elevated CA-125 and CEA waiting on cytology result, possible consult with Hematology/Oncology depending on results following with hospitalist. 4. Anemia, stable. Will continue to follow. We will continue to follow during her hospital course. Further plans be made as needed. I have discussed this case with Dr. Vásquez. Dictated by KHUSHI Woo for Bairon Vásquez MD cc: KHUSHI Gomez MD
[2019-02-14] MEDS: PROTONIX IV SCH ×2 (02:33→15:54)
[2019-02-14 05:14] LABS: BASO# 0.01 X1000 (0.0-0.2); BASO% 0.1 % (0.0-0.8); EOS# 0.01 X1000 (0.0-0.7); EOS% 0.1 % (0.0-10.0); HEMATOCRIT 29.2 % (37.0-47.0); HEMOGLOBIN 8.9 g/dL (12.0-16.0); IMM GRAN# 0.03 X1000 (0.0-0.04); IMM GRAN% 0.3 % (0.0-0.5); LYMPH# 0.27 X1000 (1.2-3.4); MCH 24.9 PG (27-31); MCHC 30.5 g/dL (33-37); MCV 81.6 FL (81-99); MONO# 0.78 X1000 (0.11-0.59); MONO% 8.6 % (1.7-9.3); MPV 8.5 FL (7.4-10.4); NEUT# 7.95 X1000 (1.4-6.5); NEUT% 87.9 % (42.2-75.2); PLT 351 X1000 (130-400); RBC 3.58 XMIL (4.2-5.4); WBC 9.05 X1000 (4.8-10.8)
[2019-02-14 05:22] LABS: ALB/GLOB RATIO 1.1; ALBUMIN 3.2 g/dL (3.5-5.0); CALCIUM 8.7 mg/dL (8.8-10.2); CREATININE 1.3 mg/dL (0.5-0.9); POTASSIUM 4.6 mmol/L (3.5-5.1); TOTAL BILIRUBIN 0.52 mg/dL (0.20-1.00)
[2019-02-14 05:33] LABS: LYMPHS 6 % (21-51); MONO 6 % (1-9); SEGS 88 % (42-75)
[2019-02-14] MEDS: HUMALOG SUBQ SCH ×2 (06:15→13:53)
[2019-02-14] MEDS: FERROUS SULFATE PO SCH ×2 (10:12→10:26)
[2019-02-14] MEDS: TUMS PO SCH ×3 (10:12→15:05)
[2019-02-14] MEDS: VITAMIN B-12 PO SCH ×2 (10:12→10:26)
[2019-02-14] MEDS: BENADRYL PO SCH ×2 (10:12→10:23)
[2019-02-14] MEDS: COGENTIN PO SCH ×3 (10:12→15:07)
[2019-02-14] MEDS ORDERED: LASIX IV ONE (11:20)
[2019-02-14] MEDS: ALBUMIN 25% IV SCH (11:22)
--- NOTE | 2019-02-14 11:34 | PROVIDER DOCUMENTATION ---
This chart was entered by Belem Alcantara Scribe, acting as scribe for Darius Ness MD. HPI-General Adult - General Chief Complaint: Fall Stated Complaint: Fall Time Seen by Provider: 02/11/19 11:00 Source: patient, EMS (first response) Allergies/Adverse Reactions: Patient Allergies Allergy/AdvReac Type Severity Reaction Status Date / Time Penicillins Allergy RASH Verified 02/11/19 10:59 Sulfa (Sulfonamide Allergy RASH Verified 02/11/19 10:59 Antibiotics) Home Medications: Home Medication List Medication Instructions Recorded Confirmed Last Taken Type Acetaminophen [Mapap] 500 mg PO Q6H PRN PRN 10/19/14 02/11/19 Unknown History Loperamide [Imodium] 2 mg PO PRN PRN 10/19/14 02/11/19 Unknown History Benztropine Mesylate 1 mg PO TID 10/07/18 02/11/19 02/11/19 History Linagliptin [Tradjenta] 5 mg PO DAILY 10/07/18 02/11/19 02/11/19 History Nebivolol HCl [Bystolic] 10 mg PO DAILY 10/07/18 02/11/19 01/09/19 History Omeprazole 20 mg PO 0500 10/07/18 02/11/19 02/11/19 History Paliperidone Palmitate [Invega 156 mg IM DIRECTED 10/07/18 02/11/19 12/19/18 History Sustenna] Trazodone [Desyrel] 150 mg PO HS 10/07/18 02/11/19 01/09/19 History Docusate Sodium [Colace] 100 mg PO QHS PRN 10/08/18 02/11/19 Unknown History Diphenhydramine HCl [Banophen] 25 mg PO BID 01/09/19 02/11/19 Unknown History Potassium Chloride 10 meq PO DAILY 01/09/19 02/11/19 02/11/19 History Calcium Carbonate Chew [Tums] 500 mg PO 4XDAY 02/11/19 02/11/19 02/11/19 History Losartan Potassium 100 mg PO DAILY 02/11/19 02/11/19 Unknown History Psyllium Husk [Fiber Laxative] 0.52 gm PO DAILY 02/11/19 02/11/19 Unknown Histo ry Torsemide 10 mg PO DAILY 02/11/19 02/11/19 02/11/19 History - History of Present Illness -Gen Adult Nature of Presenting Problems: 78 yowf presents to the ed via ems post fall this am. per ems when aos pt was lying face down on the carpet and had a noted low BP of 76/45. pt has hx of dementia and lives in assisted living home. per ems staff sts pt was in the floor approximately 20 minutes before found by staff.. per assisted living home pt was hypotensive this am at facility and with conflicting stories to er nurse pt may have been given her HTN medications this am. pt on exam is hypotensive at 82/40 and is at baseline with a/o x2. pt unsure of LOC and has noted abrasions to face. Location of Pain/Injury: reports: face (nose forehead and rt face) Quality of Pain: reports: aching Severity: reports: mild Onset/Duration: reports: 1 hour ago (20 min in floor and then brought to ed) Timing: reports: still present Context/Activities at Onset: reports: light activity Modifying Factors: worse with: palpation Associated Symptoms: reports: sensory/motor loss (rt face), syncope, weakness, other (abd pain). denies: back/neck pain, chest pain, cough, diarrhea, fever/chills, headaches, nausea, shortness of breath, vomiting Similar Symptoms Previously?: No Recently seen or treated by another doctor?: No Review of Systems - Adult - REVIEW OF SYSTEMS - ADULT Constitutional: denies: chills, fever Eyes: reports: no symptoms reported Ears, Nose, Mouth & Throat: reports: no symptoms reported Cardiovascular: denies: chest pain, palpitations Respiratory: denies: shortness of breath, wheezing Gastrointestinal: reports: see HPI, abdominal pain. denies: diarrhea, nausea, vomiting Genitourinary: reports: no symptoms reported Musculoskeletal: denies: back pain, neck pain Integumentary: reports: see HPI, other (abrasions) Neurological: reports: syncope. denies: dizziness/vertigo, headache/migraines, slurred speech Psychiatric: reports: no symptoms reported Endocrine: reports: no symptoms reported Hematologic/Lymphatic: reports: no symptoms reported Allergic/Immunologic: reports: no symptoms reported All Other Systems: Reviewed and Negative Past History - Adult - PAST MEDICAL HISTORY-ADULT Review of Records: reports: Old Records Reviewed, Nursing Assessment Review, Medications Reviewed, Social history reviewed & non-contributory. Major Childhood Illnesses: reports: denies history Cardiovascular: reports: HTN Respiratory: reports: denies history Gastrointestinal: reports: denies history Obstetrical/Gynecological: reports: denies history Genitourinary: reports: denies history Musculoskeletal: reports: denies history Neurological: reports: dementia Psychiatric: reports: schizophrenia Endocrine/Immune: reports: Diabetes Other Conditions: reports: skin disorder (cancer) - PRIOR SURGERIES/PROCEDURES Surgical/Procedure History: reports: cholecystectomy, other (skin cancer removal, face and lip) - IMMUNIZATION STATUS Childhood Immunizations: See Nurse Assessment Flu Vaccine: See Nurse Assessment - FAMILY HISTORY Family History: other (unable to assess due to AMS) - SOCIAL HISTORY Smoking: denies Substance Use: denies Living Situation: care facility Physical Exam-General - PHYSICAL EXAM-ADULT Initial Vital Signs Reviewed: Yes (noted BP 81/46 82/40) - CONSTITUTIONAL General Appearance: alert, no apparent distress, obese - EYES Eyes: PERRL/EOMI, pink conjunctivae - HEAD, EARS, NOSE, MOUTH & THROAT HENMT: other (abrasions noted to forehead, nose and rt face). negative: moist mucous membranes (dry oral with red tongue) - NECK Neck: non-tender, full range of motion, normal inspection - RESPIRATORY Respiratory: chest non-tender, lungs clear, normal breath sounds - CARDIOVASCULAR Cardiovascular: normal peripheral pulses, regular rate, rhythm - GASTROINTESTINAL (ABDOMEN) Abdominal Exam: normal bowel sounds, soft, distended, tenderness (LLQ). negative: guarding, rigid, rebound - LYMPHATIC Lymphatic: no adenopathy - MUSCULOSKELETAL Back Exam: other (pt lying on back and exam not done) Extremity: normal capillary refill, swelling (BLE 2+), other (pt at baseline ambulates with walker) - SKIN Integumentary: warm/dry, abrasion(s) (forehead, nose and rt face), pallor - NEUROLOGIC Neurologic: sensory deficit (rt sided face carinal nerve 7 1-3). negative: facial droop - PSYCHIATRIC Psych/Mental Status: normal mood/affect, normal thought content, normal thought process, other (pt is dementia pt and at baseline is a/o x2 of person and place only. same in ed and can follow basic commands) Progress - PLAN OF CARE/RESULTS Progress/Plan/Lab Results: Vital Signs - 8 hr 02/11/19 10:47 Temperature 98.9 F Pulse Rate 85 Respiratory Rate 18 Blood Pressure 81/43 O2 Sat by Pulse Oximetry 95 Result Diagrams: 02/11/19 11:36 02/11/19 11:36 - REASSESSMENT Reassessment #1 Time Reassessed: 13:02 Status: unchanged - EKG 1 Time of EKG reading by physician:: 11:29 EKG Read and Signed by:: Darius Ness EKG Interpretation (*Must complete 3 of following elements*): Abnormal Rate: 85 Rhythm: a flutter [place]: normal QRS: RBB [place] Interval: normal ST Wave: normal - CT/MRI 1 CT Study: Cervical Spine, Head Impression: See EMR Report (EXAM : CT HEAD/C-SPINE W/O CONTRAST HISTORY: head injury/pain TECHNIQUE: 1. CT head without contrast 2. CT cervical spine without contrast COMPARISON: Head compared to 01/09/2019 FINDINGS: Head: No parenchymal hemorrhage. No epidural or subdural hematoma. No subarachnoid hemorrhage. Mild atrophy. No mass identified on this noncontrasted exam. No hydrocephalus. Nasal fracture. No sinus opacification or air-fluid levels. Cervical spine: Mild scoliosis. Mild to moderate degenerative changes throughout the cervical spine. No precervical soft tissue swelling. No subluxation. No fracture. Right pleural effusion. IMPRESSION: Head: No intracranial injury. Nasal fracture. Cervical spine: No acute fracture. This exam was performed using automated exposure control, adjustment of mA or kV according to patient size, and/or use of iterative reconstruction technique. Electronically signed by Jessee Martinez 02/11/2019 1:05 PM 02/11/19 1305 Interpreting Physician: Jessee Martinez MD Dictated Date/Time: 02/11/19 1302 cc: Darius Ness MD; None,PCP) 2 CT Study: Facial Bones Impression: See EMR Report (EXAM: CT MAXILLOFACIAL(SINUS) W/O CO HISTORY: fall, facial injury TECHNIQUE: CT face without contrast COMPARISON: None. FINDINGS: Nasal fracture. No other fracture or dislocation. No sinus opacification or air-fluid levels. 10 mm lucent area in the mid anterior mandible which may be a cyst periodontal disease. Arthritis to the temporomandibular joints IMPRESSION: Nasal fracture Electronically signed by Jessee Martinez 02/11/2019 1:21 PM 02/11/19 1321 Interpreting Physician: Jessee Martinez MD Dictated Date/Time: 02/11/19 1319 cc: Darius Ness MD; None,PCP) 3 CT Study: Abdomen, Pelvis Impression: See EMR Report (EXAM: CT ABDOMEN/PELVIS W/O CONTRAST HISTORY: LLQ pain, hypotension TECHNIQUE: CT abdomen and pelvis without contrast COMPARISON: 10/07/2018 FINDINGS: There is a moderate-sized right pleural effusion measuring 3.4 cm posteriorly and inferiorly in the midline. Tiny left effusion. Moderate to large hiatal hernia. Interval development of a moderate amount of abdominal and pelvic ascites. The gallbladder has been removed. There are scattered hepatic and splenic granuloma. No other focal abnormalities identified on this noncontrasted study. No inflammation about the pancreas. Normal adrenal glands. No renal stones. No hydronephrosis. Severe at herosclerosis. There is stool throughout the colon. There are scattered colonic diverticula. No bowel obstruction. No focal uterine abnormality. The urinary bladder is moderately distended. IMPRESSION: 1.Interval development of a moderate amount of abdominal and pelvic ascites 2.Moderate right pleural effusion which has slightly increased in size 3.Large hiatal hernia 4.Cholecystectomy 5.Severe atherosclerosis 6.Constipation 7.Colonic diverticulosis This exam was performed using automated exposure control, adjustment of mA or kV according to patient size, and/or use of iterative reconstruction technique. Electronically signed by Jessee Martinez 02/11/2019 1:31 PM 02/11/19 1331 Interpreting Physician: Jessee Martinez MD Dictated Date/Time: 02/11/19 1328 cc: Darius Ness MD; None,PCP) - CONSULTS/PCP/HOSPITALIST Notification #1 *Consult/PCP/Hospitalist*: dr berry Time Discussed: 13:35 (maisha DRYWALL SANDER will come see pt and pt will likely go across town to ICU) Reason/Comments: phone consult Consult Disposition: Admit Departure - Departure Date of Disposition Decision: 02/11/19 Time of Disposition Decision: 13:37 DIAGNOSIS: Syncope and collapse, Acute kidney injury Hypotension Qualifiers: Hypotension type: other hypotension type Qualified Code(s): I95.89 - Other hypotension Anemia Qualifiers: Anemia type: unspecified type Qualified Code(s): D64.9 - Anemia, unspecified Facial contusion Qualifiers: Encounter type: initial encounter Qualified Code(s): S00.83XA - Contusion of other part of head, initial encounter Head injury Qualifiers: Encounter type: initial encounter Qualified Code(s): S09.90XA - Unspecified injury of head, initial encounter Disposition: ADMITTED INPATIENT 09 Certified Medical Emergency: Emergent Condition: Good - Critical Care Note This patient required my direct & personal management of CC.: Yes Total Time (mins): 38 Critical Care Statement: This patient required my direct personal management to treat or rule out processes, the absence of which, could potentiallly result in sudden, clinically significant life or limb threatening deterioration. Attestation - Physician/ RORO Attestation Patient care was provided by Advanced Practice Provider:: No The physician spent face to face time with patient:: Yes Advanced Practice Provider documentation review:: Supervising physician onsite and consulted in the evaluation and care of this patient. The physician did have a face to face encounter with the patient. This chart was documented by the indicated scribe, (Belem Alcantara Scribe) an d accurately reflects the services I performed and decisions made by me, Darius Ness MD, as attested by the provider's signature.
--- NOTE | 2019-02-14 12:21 | PROGRESS NOTE ---
DATE: 02/14/2019 SUBJECTIVE: This morning Ms. Hernandez refers to be feeling a little sick. I understand she threw up about twice. The charge nurse was a little concerned about her breathing. OBJECTIVE: Vital signs: Blood pressure is currently 143/63, pulse is 99, respirations 20, temperature is 98.1 degrees. General: The patient is a 78-year-old female, she is in bed. She did not seem to be in any distress. HEENT: Mucosa is slightly pale but moist. Anicteric. Acyanotic. Neck: Supple. Chest: Air entry was bilaterally reduced, but no crepitations, no rhonchi. Cardiovascular: Regular rate and rhythm. GI: The abdomen was soft, was globally distended, with shifting dullness, but there was no pain. There was no tenderness on palpation. Bowel sounds were present but remarkably low. Extremities: About 1+ pedal edema. TRAFFIC COORDINATOR: The patient was awake and alert, however, she had a tendency to be drifting to sleep. She did not seem to have any tremors today. LABORATORY DATA: Hemoglobin is up to 8.9. WBC and platelet counts are within normal range. Chemistry is also reviewed. Creatinine is down to 1.3. The BUN has normalized. ASSESSMENT: 1. Shock on presentation, presumably hypovolemic shock, with possible superimposed drug side effects and sepsis. The patient is currently normotensive and she is off vasopressors. 2. Exudative ascites concerning for malignancy. We are still awaiting the cytology. The patient is on antimicrobial coverage. 3. Elevated CA-125 associated with exudative ascites, concerning for malignancy with peritoneal carcinomatosis. We are still pending the cytology from the ascitic fluid. 4. Acute on chronic renal failure. I think this time the creatinine is back to 1.3. BUN has normalized. I think this is her baseline creatinine. 5. Mild fluid overload. We will give the patient a dose of Lasix this morning. 6. History of schizophrenia. The patient has been started back on her home medications. 7. Residual tremors improved. 8. Microcytic anemia with hypoproliferative bone marrow state. The patient was transfused 1 unit of PRBC. Hemoglobin and hematocrit is improved. PLAN: In general, I think Ms. Hernandez remains sick this morning. She has run a slight temperature and she was slightly tachycardic, but she is on an antimicrobial. She is on antimicrobial therapy, and she is not remarkably hypoxemic today. Her vitals are more stable in terms of the blood pressure. We are weaning her. We will continue with the current antimicrobial therapy. She seems more fluid overloaded, so we are giving her Lasix. She has continued to be on the albumin. I got a call yesterday from Pathology and it appears that the preliminary cytology is positive for malignant cells, so they are waiting on the immuno chemical stains to know the primary source. cc: Isaiah Pruett MD MTDD
--- NOTE | 2019-02-14 13:07 | GASTROENTEROLOGY PROGRESS NOTE ---
DATE: 02/14/2019 SUBJECTIVE: The patient has been moved out of the intensive care unit to the first floor. She is in no acute distress. No family was at the bedside at the time of my evaluation. Per nurse report, she has had some confusion today. OBJECTIVE: Vital Signs: Temperature 98.1 degrees, pulse 99, respirations 20, blood pressure 143/63. LABORATORY DATA: Hematology: WBC 9.05, hemoglobin 8.9, hematocrit 29.2, MCV 81.6, platelets 351,000. Chemistry: Sodium 138, potassium 4.6, chloride 105, CO2 of 18, BUN 20, creatinine 1.3, glucose 154. Total bilirubin 0.52, AST 10, ALT 6, alkaline phosphatase 64. CEA elevated at 41.8. CA19-9 at 414. CA-125 of 1912. ASSESSMENT AND PLAN: 1. Hypovolemia. The patient has had fluid replacement and is off of vasopressors. 2. Ascites, questionable peritonitis, on antibiotics. I believe cytology is pending. Question of malignant ascites. 3. Elevated cancer markers, CA19-9, CA-125, CEA. Oncology has been consulted. 4. There has been no evidence of active gastrointestinal bleeding at present time. Hemoglobin and hematocrit are stable. We will continue to follow and be available as needed. I have discussed this case with Dr. Vásquez. Dictated by KHUSHI Woo for Bairon Vásquez MD cc: KHUSHI Gomez MD
[2019-02-14] MEDS ORDERED: DULCOLAX PR ONE (16:04)
[2019-02-14] MEDS ORDERED: TRANSDERM-SCOP TD SCH (16:45)
[2019-02-14] MEDS: MORPHINE IV PRN (17:22)
[2019-02-15] MEDS: TYLENOL PR PRN (09:44)
[2019-02-15] MEDS: ATIVAN IV PRN ×2 (11:22→16:45)
--- NOTE | 2019-02-15 18:21 | PROGRESS NOTE ---
DATE: 02/15/2019 SUBJECTIVE: This morning Ms. Hernandez was extremely lethargic, and I understand that she was just given medication for pain. Her niece, who is her power of ip attorney, was at the bedside. OBJECTIVE: Vital signs: Blood pressure is 128/59, pulse of 135, respirations 37, temperature is 103.0 degrees. On general exam, Ms. Hernandez is a 78-year-old female. She was in bed. She was on a nasal cannular. Mucosa was pink and moist. Anicteric. Acyanotic. Neck is supple. Chest: Air entry was bilaterally reduced. There are a crackles in the posterior lung zuniga. Cardiovascular: Tachycardic, but no murmurs. Abdomen: Remarkably distended. Bowel sounds were hypoactive. Extremities: About 1+ pedal edema. Central Nervous System: The patient was very lethargic, almost stuporous, would barely just open the eyes to extreme painful stimulation. Pupils were pinpoint, but sluggishly reactive. LABORATORY STUDIES: No lab work for today. ASSESSMENT: 1. Shock on presentation, presumably hypovolemic with superimposed sepsis and medication side effects. 2. Malignant ascites. The patient is status post large bowel paracenteses. 3. 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 We are still pending the cytology final report. 4. Acute on chronic renal failure. 5. History of schizophrenia. 6. Microcytic anemia with hypoproliferative bone marrow state. 7. Altered mental status secondary to global encephalopathy. 8. Poor prognosis due to underlying malignancy. David Cleary got admitted about 4 days ago from assisted living because she was falling down, was found to have a blood pressure of 76/45, was brought into the emergency room and was evaluated. Was initially admitted to ICU. Was found to have a hemoglobin level of 6.6. She was fluid resuscitated. She needed pressor for some time and she was transfused 1 PRBC. During the hospital course, paracenteses was done. About 4.5 L was removed at the bedside. The fluid analysis showed that the SAAG was less than 1.1, so this was not related to portal hypertension, the total protein in the serum was also 4.6, and her WBC was to 2078. A preliminary report from Pathology seems to indicate that the fluid is positive for malignancy and they are awaiting on the immunochemical stains. However, Ms. Hernandez has reaccumulated fluid more rapidly, and she has declined during the hospital course. Discussion from her power of ip attorney (the niece) has indicated that Ms. Hernandez would want to be a DNR level 1 and comfort care measures at this point. Palliative nurse has been consulted, and at this point, hospice has also come to evaluate Ms. Hernandez. Unfortunately, I understand that Ms. Hernandez does not qualify for [facility], and the palliative nurse is looking into getting her to a facility where hospice can be done. cc: Isaiah Pruett MD
--- NOTE | 2019-02-15 18:50 | HEMO/ONC CONSULTATION ---
DATE: 02/15/2019 REQUESTING PHYSICIAN: Dr. Pruett. HISTORY OF PRESENT ILLNESS: Ms. Hernandez is a 78-year-old woman with a known history of diabetes and schizophrenia who was found down at her residence at the [facility] on the date of admission. She was found to be hypotensive. She was thought to be septic and was admitted to the ICU, where she quickly responded to IV fluids. She clearly had some abrasions and bruising to her right face. She is unsure of preceding events to her fall. Since admission, she was noted to have abdominal bloating. She underwent a diagnostic and therapeutic paracentesis with significant leukocytosis noted on her ascitic fluid, and a serum/ascites albumin gradient more consistent with an exudative effusion. She was also noted to have significant anemia. CT of the abdomen and pelvis on admission showed ascites, hiatal hernia, moderate right pleural effusion, status post cholecystectomy, atherosclerosis, diverticula and constipation. The patient is unable to provide much of a history of symptoms. She seems confused at the time of consultation. Past medical history, past surgical history, social history, family history, allergies, medications and review of systems were obtained per the electronic record and discussion with her medical providers, as the patient is unable to give much history, and her niece is not at the bedside at the time of consultation. PAST MEDICAL HISTORY: Diabetes, hypertension, schizophrenia, anemia, chronic constipation, chronic kidney disease. PAST SURGICAL HISTORY: Cholecystectomy. SOCIAL HISTORY: The patient resides at [facility]. Her niece is her closest family member and her caregiver. The patient denies any tobacco, alcohol or illicit drug use. FAMILY MEDICAL HISTORY: No family history of cancer noted. ALLERGIES TO MEDICATIONS: Reviewed per the chart. PHYSICAL EXAMINATION: Vital Signs: Temperature 98.7, pulse 83, respiratory rate 16, blood pressure 116/52, 02 saturation 98% on 2 liters via nasal cannula. General: This is a chronically- ill-appearing, overweight woman in no acute distress. She is sitting in the ICU unaccompanied at the time of consultation. HEENT: Eyes: Sclerae anicteric. Conjunctivae pale. Cardiovascular: Regular rate and rhythm. Normal S1 and S2. No murmurs, rubs, or gallops. Pulmonary: Lungs are clear to auscultation bilaterally without wheezes, rales, or rhonchi. GI: Abdomen is soft and distended with notable ascites, but nontender with normoactive bowel sounds. Extremities: No clubbing or cyanosis. Trace bilateral pedal edema. Neurologic: The patient is alert and oriented to self but is unclear on why she is in the hospital and the events that led to her hospitalization. IMAGING: As per HPI. LABORATORY DATA: CA-125 is 1912. B12 446, folate 4.6, saturation 60%, hemoglobin 8.1. Total bilirubin 0.38, alkaline phosphatase 56, total protein 5.0, albumin 2.7. ASSESSMENT/PLAN: 1. Ascites, suspicious for peritonitis versus malignancy: I have recommended a pelvic ultrasound and cytology review of her ascitic fluid. That is pending at the time of consultation. Will follow up on those results and assess. Further evaluation based on the results of that testing. Given her elevated CA-125, I am certainly suspicious for a gynecologic malignancy. There is no obvious evidence of malignancy on imaging, although Dr. Pruett had mentioned an old scan that showed possibly some peritoneal modulators. I will review her old scans as well. 2. Anemia: I have recommended iron repletion, given her low iron saturation. Her B12 and folic acid are normal. Monitor with daily complete blood counts. 3. Schizophrenia: Her mood appears stable. I am unsure of her baseline understanding of her medical problems. I will discuss her case, with her permission, with her niece who is her primary caregiver. Thank you for this consultation and the opportunity to participate in the care of this patient. I will follow along and make further recommendations as indicated based on her hospital course. cc: Kathrin Barrera MD
[2019-02-16] MEDS: TYLENOL PR PRN ×2 (06:48→09:44)
[2019-02-16] MEDS: ATIVAN IV PRN ×2 (09:23→12:26)
[2019-02-16] MEDS: MORPHINE IV PRN ×2 (09:23→12:26)
[2019-02-16 11:56] VITALS: BP 64/31
--- NOTE | 2019-02-16 12:52 | PROGRESS NOTE ---
DATE: 02/16/2019 SUBJECTIVE: The patient is lethargic. Family members at the bedside. She seems to be actively dying, shallow respirations, tachycardic. OBJECTIVE: Vital Signs: Temperature 102.6 degrees, pulse 139, blood pressure 99/40, oxygen saturation 91% on nasal cannula, and respiratory rate 37. HEENT: Head normocephalic. She has multiple excoriations on her face. Neck: Supple. No JVD. Central trachea. Chest: Coarse breath sounds with crackles bilaterally. Abdomen: Soft, distended. It looks like she has some fluid inside. Extremities: There is 1+ pitting edema. No clubbing. No cyanosis. Neurological: This patient is lethargic. ASSESSMENT AND PLAN: 1. Septic shock and probably hypovolemic shock on presentation. 2. Malignant ascites status post large bowel paracentesis. 3. 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 4. Acute on chronic kidney disease. 5. History of schizophrenia. 6. Microcytic anemia with hypoproliferative bone marrow state. 7. This patient is lethargic. 8. Poor prognosis due to malignancy. 9. This patient is Do Not Resuscitate level 1. 10. This patient has been placed on comfort measures only. She seems to have an extremely poor prognosis, and she may today or tomorrow. cc: Christian Faustin MD
--- NOTE | 2019-02-17 12:03 | DISCHARGE SUMMARY ---
ADMISSION DATE: 02/11/2019 DISCHARGE DATE: 02/16/2019 DISCHARGE DIAGNOSES: 1. Shock, hypovolemic versus septic shock on presentation. 2. Symptomatic anemia on presentation. 3. Syncope. 4. Acute on chronic kidney disease. 5. Electrolyte imbalance. 6. Nasal fracture. 7. History of schizophrenia. 8. Moderate sized right pleural effusion. 9. 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 10. Altered mental status secondary to global encephalopathy, which could be multifactorial. 11. This patient today, 02/16/2019 at 1350, family at the bedside and they were notified. HOSPITAL COURSE: This is a 78-year-old female with a past medical history of schizophrenia, diabetes, CKD, dementia, hypertension, anemia of chronic disease, and chronic constipation presented to the emergency department and was admitted on 02/11/2019. Apparently she was found face down on the carpet at the [facility] where she is a resident. According to the chart, the patient's blood pressure was low at 76/45 shortly after being found. The patient remembered sitting on the side of the bed getting ready to go downstairs to eat. She stood up without using her walker and she states that she remembers hitting the floor and hearing a big crack and laying there until someone found her. Apparently she stayed on the floor for about 20 minutes before being found. CT of the face showed a nasal fracture. Abdomen and pelvis CT scan showed a moderate amount of abdominal and pelvic ascites, right pleural effusion, severe atherosclerosis, cholecystectomy, constipation and colonic diverticulosis. The patient was admitted. She received IV fluids. She was placed on Protonix IV and have GI consulted. They recommended to continue to monitor the hemoglobin and hematocrit, transfuse as needed. She received 1 unit of blood. Paracentesis was done and 4 L of fluid was removed. We noticed that she had an elevated CA-125 associated with exudative ascites concerning for ovarian malignancy with peritoneal carcinomatosis. Hematology Oncology and palliative care nurse has been consulted, but it looks like this patient has been getting worse on a daily basis and she was placed on comfort measures only. She became lethargic. When I examined the patient today, the patient basically was actively dying with shallow respirations and tachycardic. This patient today, 02/16/2019 at 1350, family members at the bedside. They were informed. cc: Christian Faustin MD
== END 2019-02-16 13:50 | disposition expired | DRG 871 ==
LOC: P.ED 10:54 → ICU 14:42 → SUATTDRO 14:42 → 1N 02-13 17:03
PROVIDERS: ATTEND Internal Medicine